=== PATIENT | female | born 1950 | race Caucasian/White ===

== ENCOUNTER → 2024-04-23 16:43 | Outpatient (REF) | payer MEDICARE, OTHER, SELFPAY | LOC: PAVMRI 16:43 | PROVIDERS: ATTENDING PHYSICIAN Specialist; FAMILY PHYSICIAN Physician Assistant Medical | DX: G95.9 Disease of spinal cord, unspecified (principal) | CPT/HCPCS: 72141 ==

== ENCOUNTER 2024-09-29 15:19 | Inpatient (IN) | payer MEDICARE, OTHER, SELFPAY ==
--- NOTE | 2024-09-26 17:05 | ED.GENMED ---
ED Provider Triage
<Roland Coreas PA-C - Last Filed: 09/26/24 17:06>
-
Patient seen by provider in Triage?: Seen in Triage
74-year-old female presents after being seen by family doctor for increased headache fatigue dizziness and confusion. She notes the headache is persistent but gradual in onset. She denies a fever. She denies a cough or chest pain. She notes any
minimal exertion creates fatigue.
Vital signs are stable for triage but will initiate work with labs EKG CAT scan of head here now
Seen by provider in triage but needs further assessment.
History of Present Illness
<Roland Coreas PA-C - Last Filed: 09/26/24 17:06>
General
Chief Complaint: Dizziness
Time Seen by Provider: 09/26/24 20:25
<Beth Pena DO - Last Filed: 09/26/24 23:02>
History of Present Illness
History of Present Illness:
74-year-old female with history of migraines, diabetes, hyperlipidemia, history of frequent falls presenting for dizziness and headache. Patient reports symptoms for the past few days. Dizziness is worse with certain head movements and when
sitting up. Denies any recent fall. Headache is diffuse to the head. Denies any neck pain or fever. Denies weakness or numbness to her extremities. Denies chest pain or difficulty breathing. Denies any visual changes. Denies abdominal pain or
GI symptoms. Denies additional acute medical complaints
Past History
<Roland Coreas PA-C - Last Filed: 09/26/24 17:06>
Past History
ED Past Medical History: GERD, Hypercholesterolemia, NIDDM, Hypothyroidism, Psychiatric (Depression) and Other (Ded's angina, )
ED Past Surgical History: Appendectomy, Cholecystectomy, Gynecological (DESIRE, BSO, D&C, Right lumpectomy, Breast biopsy X 2) and Other (Adhesions)
Social History
Tobacco: Former smoker
Alcohol: None
Drug: None
Personal: (same sex marriage)
Living: with family
Employment: Not employed
Family History
Family History: Other (her dads had an NH at 63)
Phy Exam
<Beth Pena DO - Last Filed: 09/26/24 23:02>
Physical Exam
Physical Exam:
General: Well-appearing, no clinical signs of dehydration, nontoxic and in no acute distress
HEENT: protecting airway, reproducible dizziness with extraocular movement testing, nystagmus when looking to the right
Neck: appears supple
CV: Normal heart rate, regular rhythm
Resp: No accessory muscle use, no increased work of breathing, lungs clear to auscultation bilaterally
Abd: Soft and non-distended, no tenderness to palpation, normal bowel sounds
Extremities: No deformities, no swelling
Neuro: alert, no focal neurologic deficit
: deferred
Rectal: deferred
Psych: Normal affect
Skin: Intact
Course
<Roland Coreas PA-C - Last Filed: 09/26/24 17:06>
Orders/Labs/Results
Orders:
Orders
09/26/24 17:03
Electrocardiogram (*1) Urgent
Reason for Study: Fatigue / Weakness
CT Head W/o Iv Contrast Urgent
Comment:
Reason For Exam: severe headache
EKG- Treatment ONCE
09/26/24 17:21
Complete Blood Count/With Diff Urgent
Comprehensive Metabolic Panel Urgent
09/26/24 20:37
Orthostatic VS- Treatment ONCE
Ketorolac [Toradol] 15 mg IV NOW STA
Meclizine [Antivert] 25 mg PO NOW STA
09/26/24 20:46
Ketorolac [Toradol] 15 mg IM NOW STA
09/26/24 22:00
Urinalysis Reflex To Culture Urgent
Date Specimen was Collected: 09/26/24
Time Specimen was Collected: 17:09
Abnormal Lab Results
09/26/24
17:21
WBC 13.4 H 10^3/uL
(4.8-10.8)
RBC 3.62 L 10^6/uL
(4.20-5.40)
Hgb 11.7 L g/dL
(12.0-16.0)
Hct 35.4 L %
(37.0-47.0)
MCH 32.3 H pg
(27.0-31.0)
Absolute Neuts (auto) 10.1 H 10^3/uL
(1.4-6.5)
Absolute Monos (auto) 0.8 H 10^3/uL
(0.1-0.6)
Neutrophils % 75.8 H %
(42.2-75.2)
Lymphocytes % 16.7 L %
(20.5-51.1)
BUN 24 H mg/dl
(7-17)
Glucose 108 H mg/dl
(70-99)
09/26/24 17:21
09/26/24 17:21
Vital Signs
Initial and Last Documented VS:
Initial Vital Signs
Temp Pulse Resp Pulse Ox
98.0 F 75 18 97
09/26/24 17:02 09/26/24 17:02 09/26/24 17:02 09/26/24 17:02
Last Documented Vital Signs
Temp Pulse Resp Pulse Ox
98.0 F 75 18 97
09/26/24 17:02 09/26/24 17:02 09/26/24 17:02 09/26/24 17:02
<Beth Pena, DO - Last Filed: 09/26/24 23:02>
Orders/Labs/Results
Orders:
Orders
09/26/24 17:03
Electrocardiogram (*1) Urgent
Reason for Study: Fatigue / Weakness
CT Head W/o Iv Contrast Urgent
Comment:
Reason For Exam: severe headache
EKG- Treatment ONCE
09/26/24 17:21
Complete Blood Count/With Diff Urgent
Comprehensive Metabolic Panel Urgent
09/26/24 20:37
Orthostatic VS- Treatment ONCE
Ketorolac [Toradol] 15 mg IV NOW STA
Meclizine [Antivert] 25 mg PO NOW STA
09/26/24 20:46
Ketorolac [Toradol] 15 mg IM NOW STA
09/26/24 22:00
Urinalysis Reflex To Culture Urgent
Date Specimen was Collected: 09/26/24
Time Specimen was Collected: 17:09
Abnormal Lab Results
09/26/24
17:21
WBC 13.4 H 10^3/uL
(4.8-10.8)
RBC 3.62 L 10^6/uL
(4.20-5.40)
Hgb 11.7 L g/dL
(12.0-16.0)
Hct 35.4 L %
(37.0-47.0)
MCH 32.3 H pg
(27.0-31.0)
Absolute Neuts (auto) 10.1 H 10^3/uL
(1.4-6.5)
Absolute Monos (auto) 0.8 H 10^3/uL
(0.1-0.6)
Neutrophils % 75.8 H %
(42.2-75.2)
Lymphocytes % 16.7 L %
(20.5-51.1)
BUN 24 H mg/dl
(7-17)
Glucose 108 H mg/dl
(70-99)
09/26/24 17:21
09/26/24 17:21
Vital Signs
Initial and Last Documented VS:
Initial Vital Signs
Temp Pulse Resp Pulse Ox
98.0 F 75 18 97
09/26/24 17:02 09/26/24 17:02 09/26/24 17:02 09/26/24 17:02
Last Documented Vital Signs
Temp Pulse Resp Pulse Ox
98.0 F 75 18 97
09/26/24 17:02 09/26/24 17:02 09/26/24 17:02 09/26/24 17:02
<Beth Pena DO - Last Filed: 09/26/24 23:02>
MDM/Problems Addressed
MDM/Problems Addressed:
74-year-old female with history of diabetes, migraines, hyperlipidemia, frequent falls presenting for dizziness and headache. Vital signs are normal.
On exam, patient is in no acute distress. Overall benign examination. Unremarkable neurologic exam. No focal neurologic deficit. Regarding headache, appears consistent with migraine, known history of migraines. No meningismus, afebrile, without
concern for infectious pathology. Patient denies any exertional onset, no focal neurologic deficits, without concern for central neurologic process. Patient had evaluation by provider in triage prior to my assessment, had blood work and CT brain
imaging completed, unremarkable. She does have a mild leukocytosis, however appears to be chronic. Will treat with Toradol and reassess for improvement. Regarding dizziness, suspected vertiginous component given reproducible symptoms with
extraocular movement testing and nystagmus. Will treat with meclizine and reassess. Patient also notes that her symptoms are worse with sitting up, will obtain orthostatics.
22:50 - After Toradol, noting that headache has improved. She is still feeling dizzy. Orthostatics negative. Attempted to ambulate, was able to stand up, however very unsteady. Patient with known history of frequent falls, ambulates with cane.
Unsafe disposition home. Will admit for observation and continued treatment of her dizziness, possible vestibular PT
<Beth Pena DO - Last Filed: 09/26/24 23:02>
*EKG
Interpreted by ED Provider?: Yes
EKG Intrepretation Date: 09/26/24
EKG Intrepretation Time: 22:50
Interpretation: normal
Heart Rate: 68
Rate: normal
Rhythm: sinus
[place]: normal axis
Interval: normal interval
QRS Pattern: normal QRS
Ischemia: no ischemia
*Critical Care Note
Total Time (30-74mins, 75-104mins- exclusive of procedures): Not Applicable
ED Attending Note
<Roland Coreas PA-C - Last Filed: 09/26/24 17:06>
-
Portions of this chart may have been created with voice recognition software.� Occasional wrong word or��sound alike� substitutions may have occurred due to the inherent limitations of voice recognition software.
Discharge Plan
Departure
Prescriptions:
No Action
atorvastatin 20 MG tablet
40 mg PO HS
fexofenadine-pseudoephedrine [Katlin-D 12 Hour] 1 EACH tablet extended release 12 hr
1 ea PO DAILY
Aimovig Autoinjector 70 MG/ML auto-injector
70 mg SQ MONTHLY
multivitamin Tablet
1 tab PO DAILY
levothyroxine 50 mcg Tablet
50 mcg PO DAILY@0700
hydrochlorothiazide 25 mg Tablet
25 mg PO DAILY
bupropion HCl [Wellbutrin XL] 150 mg Tablet Extended Release 24 Hr
450 mg PO DAILY
omeprazole 20 MG capsule,delayed release(DR/EC)
20 mg PO DAILY
citalopram 40 mg tablet
40 mg PO HS
glucosamine-chondroitin [Osteo Bi-Flex] 250-200 mg Tablet
2 tab PO DAILY
Referrals:
Gurdeep Griffiths MD [Family Provider] -
Interventions
Interventions:
*Risk Screen - Suicide Last Done: 09/26/24 17:02
*General Assessment Last Done: 09/26/24 17:02
*Neglect/Abuse Screening Last Done: 09/26/24 17:02
ED- Fall Risk Assessment Last Done: 09/26/24 21:56
*ED COVID-19 Vaccine History Last Done: 09/26/24 17:02
ED- Neurological Assessment Last Done: 09/26/24 21:56
ED Swallowing Screen Last Done: 09/26/24 21:56
Discharge Date and Time
Print Language: SINHALA
[2024-09-26 17:36] LABS: % Basophils 0.3 % (0-2); % Eosinophils 0.9 % (0-6); % Immature Granulocytes 0.3 % (0-0.5); % Lymphocytes 16.7 % (20.5-51.1); % Neutrophils 75.8 % (42.2-75.2); Absolute Eosinophils 0.1 10^3/uL (0-0.7); Absolute Lymphocytes 2.2 10^3/uL (1.2-3.4); Absolute Monocytes 0.8 10^3/uL (0.1-0.6); Absolute Neutrophils 10.1 10^3/uL (1.4-6.5); Hematocrit 35.4 % (37.0-47.0); Hemoglobin 11.7 g/dL (12.0-16.0); Mean Corp Hgb Conc. 33.1 g/dL (33.0-37.0); Mean Corpuscular Hgb 32.3 pg (27.0-31.0); Mean Corpuscular Volume 97.8 fL (81.0-99.0); Mean Platelet Volume 10.2 fL (7.4-10.4); Nucleated Red Blood Cells % 0 %; Platelet Count 293 10^3/uL (130-400); Red Blood Cell Count 3.62 10^6/uL (4.20-5.40); Red Cell Dist. Width 13.3 % (11.5-14.5); White Blood Cell Count 13.4 10^3/uL (4.8-10.8)
[2024-09-26 17:44] LABS: ALT (SGPT) < 10 U/L (0-35); AST (SGOT) 24 U/L (14-36); Albumin 4.4 g/dl (3.5-5.0); Alkaline Phosphatase 92 U/L (38-126); Blood Urea Nitrogen 24 mg/dl (7-17); Calcium 9.7 mg/dl (8.4-10.2); Carbon Dioxide 28 mmol/L (22-30); Chloride 101 mmol/L (98-107); Glucose 108 mg/dl (70-99); Potassium 4.4 mmol/L (3.5-5.1); Sodium 139 mmol/L (135-145); Total Bilirubin 0.7 mg/dl (0.2-1.3); eGFR > 60.00
[2024-09-26 21:30] VITALS: BP 122/65; BP 139/76; BP 149/83; PULSE 77; PULSE 84; PULSE 86
[2024-09-26] MEDS: ANTIVERT 25 MG PO (21:52)
[2024-09-26] MEDS: TORADOL 15 MG IM (21:52)
--- NOTE | 2024-09-26 23:12 | HPS.HSE ---
Family Physician
-
Family Physician: Gurdeep Griffiths
Chief Complaint
-
Headache, dizziness
History of Present Illness
74-year-old female complaining of Right parietal headache since Sunday along with increased dizziness with standing or lying on back. Lying on her side helps with the dizziness. She states she has had ongoing dizziness and headaches for the
past year she was diagnosed with Parkinson's and placed on Sinemet . She reports she has had frequent falls due to current dizziness. She reports resolution of her headache with Toradol. She denies any prior vestibular therapy. She reports she
follows with Dr. Herman from neurology. She denies fever, chills, cough, shortness of breath, chest pain, palpitations, abdominal pain, nausea, vomiting, diarrhea, urinary symptoms. She has past medical history of migraines, Parkinson's with chronic
tremors and frequent falls , DM2-diet controlled, HLD, GERD, hypothyroidism, depression, Edd's angina, frequent falls due to dizziness, normocytic anemia.
Medical History
Past Medical History
Past Medical History: Reports Other (see below )
Additional Past Medical History:
Parkinson's disease Dx 2022
Frequent falls
Diabetes Mellitus, Type II
Essential Hypertension
Hyperlipidemia
Hypothyroidism
Depression
Migraine Headaches
Hx Breast CA s/p Left Lumpectomy
Past Surgical History: Reports Other (see below )
Additional Past Surgical History:
Left Breast Lumpectomy
Hysterectomy and Bilateral Salpingo-oophorectomy
Cholecystectomy
Social History
Tobacco: Former Smoker
Alcohol: None
Drug: None
Personal: ( (same sex marriage))
Living: With Family ( [place]a)
Family History
Family History: Not pertinent
Allergies / Home Medications
Allergies reflects when Allergies were last updated in [employer].
Home Medications with original date entered in [employer]
Allergy/Medication List:
Allergies
Allergy/AdvReac Type Severity Reaction Status Date / Time
adhesive tape Allergy Rash/BLISTE Verified 09/26/24 17:08
RS
butorphanol Allergy HALLUCINATI Verified 09/26/24 17:08
ONS
Home Medications
atorvastatin 20 mg tablet 40 mg PO HS High cholesterol 09/25/11
bupropion HCl 150 mg 24 hr tablet, extended release (Wellbutrin XL) 450 mg PO DAILY Mental Health/Anxiety 01/05/23
hydrochlorothiazide 25 mg tablet 25 mg PO DAILY Blood pressure 01/05/23
levothyroxine 50 mcg tablet 50 mcg PO DAILY@0700 Thyroid 01/05/23
omeprazole 20 mg capsule,delayed release 20 mg PO DAILY Gastrointestinal issue 01/06/23
citalopram 40 mg tablet 40 mg PO HS Mental Health 09/25/23
glucosamine-chondroitin 250 mg-200 mg tablet (Osteo Bi-Flex) 1 tab PO DAILY Supplement 09/25/23
carbidopa 25 mg-levodopa 100 mg tablet 1 tab PO .5X DAILY 09/26/24
erenumab-aooe 140 mg/mL subcutaneous auto-injector (Aimovig Autoinjector) 140 mg SC QMONTH 09/26/24
therapeutic multivitamin 1 tab PO DAILY 09/26/24
Review of Systems
-
History Source: Patient
A 12 point ROS was completed and negative except as noted: Yes
Constitutional: Denies Fever or Fatigue
EENT: Denies Sore Throat or Runny Nose
Respiratory: Denies Cough or Trouble Breathing
Cardiac: Denies Chest Pain, Diaphoresis, Palpitations or Syncope
Abdomen/GI: Denies Abdominal Pain, Nausea, Vomiting, Diarrhea, Constipated, Bloody Stools or Black Stools
: Denies Dysuria, Frequency, Flank Pain, Incontinence, Difficulty Voiding or Urgency
Musculoskeletal: Denies Joint Pain or Edema
Skin: Denies Itching or Rash
Neurological: Reports Dizzy and Headache; Denies Weakness
Endocrine: Reports No Symptoms
Hematologic/Lymphatic: Reports No Symptoms
Psych: Reports Calm
Physical Exam
Vital Signs
Vital Signs
Temp Pulse Resp Pulse Ox
98.0 F 75 18 97
09/26/24 17:02 09/26/24 17:02 09/26/24 17:02 09/26/24 17:02
Physical Exam
General: Comfortable and Conversant; No Fever or Chills
HEENT: NormoCephalic, Anicteric, Moist mucous membranes, PERRLA (Slight left to right horizontal nystagmus brief), [place] Conjunctivae, No Ptosis and Other (Speech impediment)
Respiratory: Clear; No Wheezes, Rales or Rhonchi
Cardiac: S1/S2 and Regular Rhythm; No Murmur, Rub, Gallop or Peripheral Edema
Breast: Deferred by me
GI: Soft, Non Tender, Non Distended, Normal Bowel Sounds and No Hepatosplenomegaly
Rectal: Deferred by Provider
Genito-urinary: Deferred by me
Musculoskeletal: No Clubbing, No Cyanosis and No Edema
Skin: Warm and Dry; No Rash
Neuro: AO x 3, No Motor Deficits (While in bed), Cranial Nerves Intact, No Sensory Deficits and Slurred Speech (Due to speech impediment); No Facial Droop, Tremors or Sedated
Psych: Calm
Laboratory Results
-
09/26/24 17:21
09/26/24 17:21
Laboratory Results
Total Bilirubin 0.7 mg/dl (0.2-1.3) 09/26/24 17:21
AST 24 U/L (14-36) 09/26/24 17:21
ALT < 10 U/L (0-35) 09/26/24 17:21
Alkaline Phosphatase 92 U/L (38-126) 09/26/24 17:21
Data Reviewed
-
CT Scan: Report Reviewed by me
Lab Data: Labs Reviewed by me
Impression/Plan
-
Impression/plan:
Observation Telemetry
#Acute dizziness headache concern Parkinson's related versus vestibular neuritis vs bbpv
-Toradol given for migraine, Antivert 25 mg given for dizziness
-Patient with improvement in migraine after IV Toradol will continue IV Toradol 15 mg every 6 hours as needed moderate headache
-Will give Valium 2 mg IV now then valium 2 mg p.o. 3 times daily as needed dizziness
-Check orthostatics
-Consult PT for vestibular therapy
-Consult Neurology
CT head: No acute intracranial abnormality
#Acute leukocytosis unclear etiology likely reactive low concern for any infectious etiology
Patient afebrile, normotensive no clinical source
-WBC 13.5
-Will repeat CBC, monitor for temperature, check urinalysis
#Parkinson's disease with chronic falls and shuffling gait
#Frequent falls�uses cane
-Dx 1 year ago per patient
-Follows with neurology Dr. Herman
-Continue Sinemet
#Hx of migraines
-Patient reports migraines have been gone since taking Aimovig injection monthly
-#GERD
-continue omeprazole 20 mg daily
#Diabetes Mellitus, Type II-diet controlled
Accu-Cheks with SSI, check HgbA1c
-Blood sugar 108
#Essential Hypertension
BP 124/66
-Continue HCTZ 25 mg daily
#Hyperlipidemia
-Atorvastatin 40 mg at bedtime
#Hypothyroidism
-Continue levothyroxine 50 mcg p.o. daily
#Depression
-Continue Celexa 40 mg at bedtime, Wellbutrin 450 mg daily
#Hx Breast CA s/p Left Lumpectomy
DVT prophylaxis
SCDs
DNR per patient
--- NOTE | 2024-09-26 23:31 | W.PN.UPDATE ---
Update Note
Progress Note Update
This is an addendum to the H&P written by Citlaly Jain on 09/26/2024. Patient seen and examined independently with REHABILITATION PROGRAM COORDINATOR.
74-year-old female past medical history of Parkinson disease, migraines, diabetes, hypertension, hypothyroidism, breast cancer, hyperlipidemia, GERD, chronic normocytic anemia, obesity, presenting for right parietal headache and vertigo for the past
year although worsening within the past few days. Dizziness worse with head movements and sitting up.
On examination patient has rightward nystagmus with leftward gaze. No neurological deficits.
CT head shows no acute abnormality.
Patient given meclizine and Toradol in emergency room.
Presentation consistent with peripheral vertigo/vestibular neuritis vs Parkinsons related vertigo. Check orthostatic vital signs. PRN Valium. Neurology consulted. Vestibular therapy.
[2024-09-26] MEDS: VALIUM INJECTION 2 MG IV (23:34)
[2024-09-26 23:35] VITALS: BMI 31.9
[2024-09-27] VITALS (13 sets, daily range): BP systolic 120–158; BP diastolic 52–97; PULSE 73–75; BMI 31.9; BMI 31.0
[2024-09-27] MEDS: TORADOL 15 MG IV ×2 (04:05→18:17)
[2024-09-27] MEDS: SYNTHROID 50 MCG PO (06:17)
[2024-09-27 06:45] LABS: % Basophils 0.5 % (0-2); % Eosinophils 1.4 % (0-6); % Immature Granulocytes 0.3 % (0-0.5); % Lymphocytes 19.7 % (20.5-51.1); % Monocytes 6.5 % (1.7-9.3); % Neutrophils 71.6 % (42.2-75.2); Absolute Basophils 0.1 10^3/uL (0-0.2); Absolute Eosinophils 0.2 10^3/uL (0-0.7); Absolute Lymphocytes 2.1 10^3/uL (1.2-3.4); Absolute Monocytes 0.7 10^3/uL (0.1-0.6); Absolute Neutrophils 7.7 10^3/uL (1.4-6.5); Hematocrit 34.4 % (37.0-47.0); Hemoglobin 11.3 g/dL (12.0-16.0); Mean Corp Hgb Conc. 32.8 g/dL (33.0-37.0); Mean Corpuscular Hgb 31.9 pg (27.0-31.0); Mean Corpuscular Volume 97.2 fL (81.0-99.0); Mean Platelet Volume 10.2 fL (7.4-10.4); Nucleated Red Blood Cells % 0 %; Platelet Count 265 10^3/uL (130-400); Red Blood Cell Count 3.54 10^6/uL (4.20-5.40); Red Cell Dist. Width 13.2 % (11.5-14.5); White Blood Cell Count 10.7 10^3/uL (4.8-10.8)
[2024-09-27 06:50] LABS: Urine Albumin Negative (Neg - Trace); Urine Bilirubin Negative (Negative); Urine Character Clear (Clear); Urine Color Yellow; Urine Glucose Negative (Negative); Urine Ketone Negative (Negative); Urine Leukocyte Negative (Negative); Urine Nitrite Negative (Negative); Urine Occult Blood Negative (Negative); Urine Specific Gravity 1.005 (<1.030); Urine Urobilinogen Negative (Neg - 1+)
[2024-09-27 07:10] LABS: ALT (SGPT) 16 U/L (0-35); AST (SGOT) 27 U/L (14-36); Albumin 3.9 g/dl (3.5-5.0); Alkaline Phosphatase 83 U/L (38-126); Blood Urea Nitrogen 24 mg/dl (7-17); Calcium 8.9 mg/dl (8.4-10.2); Carbon Dioxide 27 mmol/L (22-30); Chloride 104 mmol/L (98-107); Estimated Creatinine Clearance 68 ml/min; Glucose 115 mg/dl (70-99); Potassium 4.2 mmol/L (3.5-5.1); Sodium 141 mmol/L (135-145); Total Protein 6.4 g/dl (6.3-8.2); eGFR > 60.00
[2024-09-27 07:59] LABS: Vitamin B12 678 pg/ml (239-931)
[2024-09-27] MEDS: WELLBUTRIN XL (24 hour extended release) 450 MG PO (10:08)
[2024-09-27] MEDS: PROTONIX 40 MG PO (10:09)
[2024-09-27] MEDS: ORETIC 25 MG PO (10:09)
[2024-09-27] MEDS: THERAGRAN PO (10:10)
--- NOTE | 2024-09-27 10:56 | CON.NEURO ---
Consultation
Order
Date of Consultation: 09/27/24
Requesting Provider: Citlaly Jain CRNP
Reason for Consult: Dizziness
Neurology Consultation Note.
HPI: This is a 74-year-old woman who presented to [facility] on 09/26/2024 with dizziness and headache.She was referred to the emergency room by her neurologist for lab work and a urine test.
Ms. Serrato reports dizziness, described as 'fuzzy' feeling, particularly when getting up, and feels like she is going to pass out. He did have recurrent falls wo LOC, with the most recent one occurring last week. The patient was seen in ER on 09/24/2023
with a fall
She has been experiencing forgetfulness for a couple of months. The patient reports using a cane for about a year and has not attended physical therapy since then. The patient has been on Sinemet for about a year but reports no improvement in her
walking, movement, or turning abilities, and feels her condition is worsening.
Ms. Serrato has a history of migraine headaches and has been using Aimovig for treatment. Her headaches are typically located on the right retrorbital region, sometimes accompanied by nausea or intermittent emesis. Rachel has been on Aimovig for
stroke prophylaxis. Ms. Serrato has been in Wellbutrin for years. She had a lumbar puncture in 2019 due to her headaches. No OP/CP, OCB/MBP on CSF testing on (11/20/2018) is available.
The patient also has history of pituitary microadenoma
ER VS: 135/63,68, afebrile
EKG:NSR, QTc Int : 467 ms
PDMP:none
Labs: WBCs�13.4, hemoglobin�11.7, normal sodium, creatinine, calcium, free T4, vitamin B12, unremarkable UA
Brain MRI wo stiven(09/25/2023)-severe white matter leukoaraiosis in both cerebral hemispheres; symmetric very low T2 gradient echo signal in the globus pallidus of the basal ganglia and in the substantia nigra of the midbrain which appears similar to
06/22/2020; moderate diffuse cerebral and cerebellar volume loss.
MAR: Diazepam 2 mg given on 09/26/24 at 23:34
PMH: pituitary microadenoma, Migraine, parkinsonism, HTN, DLP, DM, hypothyroidism, STIVEN, MDD, h/o Edd's angina
PSH:Left Lumpectomy, cholecystectomy, DESIRE, bilateral Salpingo-oophorectomy
SH: to a female partner, former smoker; retired [employer]; no history of excessive alcohol
FH:mother-stroke in her 70s
All: Butorphanol
ROS: Constitutional: Negative. Negative for chills, fever and unexpected weight change.
HENT: Negative for ear pain, hearing loss, tinnitus and trouble swallowing.
Eyes: Negative. Negative for photophobia, pain and visual disturbance.
Respiratory: Negative for cough, choking and shortness of breath.
Cardiovascular: Negative for chest pain, palpitations and leg swelling.
Gastrointestinal: Negative for abdominal pain and vomiting.
Endocrine: Negative. Negative for cold intolerance.
Genitourinary: Negative for dysuria, flank pain and urgency.
Musculoskeletal: Negative for back pain, gait problem, neck pain and neck stiffness.
Skin: Negative for rash.
Allergic/Immunologic: Negative. Negative for immunocompromised state.
Neurological: Positive for bradykinesia, forgetfulness imbalance, tremor, falls
Psychiatric/Behavioral: Positive insomnia, cognitive symptoms
General: Well developed. In no acute distress.
Cardio: Regular rate and rhythm without murmur. Extremities are without cyanosis or edema.
Neuro:
Mental Status: Somnolent, oriented to person, place, and date. Increased processing time. Normal attention and recall. Good fund of knowledge. Follows complex requests across the midline. Comprehension, naming, and repetition intact. Immediate
recall 3/3.
Cranial Nerves: Pupils are equally round and reactive to light. EOMs full. Visual suazo full to confrontation. No ptosis. No nystagmus. V1-V3 intact to light touch and pinprick bilaterally, symmetric. Face symmetric. Normal hearing AU. The
palate elevated well. SCMs and traps 5/5. Tongue midline. No dysarthria.
Motor: Increased motor tone in right greater than left with augmentation.
Reflexes: Negative grasp bilaterally
Sensory: Normal vibration at the toes
Coordination: Mild action hand tremor. No dysmetria
Gait: deferred
Assessment and Plan:
I. Parkinsonism basal ganglia iron deposition differential diagnosis includes neurodegeneration with brain iron accumulation, multiple sclerosis,
II.Basal ganglia iron deposition. Differential diagnosis includes neurodegeneration with brain iron accumulation, multiple sclerosis, IPD)
III. Encephalopathy(vascular, neurodegenerative, toxic)
-Fall precautions
-Please obtain orthostatic vital signs
-Avoid medications known to cause headache as a side effect�Wellbutrin (up to 34% of treated patients),
-Please check iron panel, copper, ceruloplasmin
-Op Art scan
-OP LSVT therapy
-Outpatient neuropsychological evaluation
-Outpatient neurology follow-up
-Please recall neurology service with any questions or concerns
I personally reviewed all radiology and labs along with past medical records pertinent to current medical problems. Total time spent in patient care is 60 minutes.
Thank you for allowing us to participate in the care of this patient. We will continue to follow. Please do not hesitate to contact us with any questions or concerns.
Subjective/Objective
Subjective Data
Date of Service: September 27, 2024
Objective Data
Vital Signs
Temp Pulse Resp BP Pulse Ox
36.8 C 88 15 157/85 98
09/27/24 04:00 09/27/24 10:09 09/27/24 05:30 09/27/24 10:09 09/27/24 04:00
Lab Results
09/27/24 06:27
09/27/24 06:27
Sodium 141 mmol/L (135-145) 09/27/24 06:27
Potassium 4.2 mmol/L (3.5-5.1) 09/27/24 06:27
BUN 24 mg/dl (7-17) H 09/27/24 06:27
Glucose 115 mg/dl (70-99) H 09/27/24 06:27
Calcium 8.9 mg/dl (8.4-10.2) 09/27/24 06:27
Vitamin B12 678 pg/ml (239-931) 09/27/24 06:27
Patient Allergies
adhesive tape Allergy (Verified 09/26/24 17:08)
Rash/BLISTERS
butorphanol Allergy (Verified 09/26/24 17:08)
HALLUCINATIONS
Medications
-
Active Medications
Generic Name Dose Route Start Last Admin
Trade Name Freq PRN Reason Stop Dose Admin
Acetaminophen 650 mg 09/27/24 00:28
Acetaminophen 325 Mg Tablet PO 10/25/24 00:27
Q4HPRN PRN
mild pain/MENDOZA/temp> 100.4F
Atorvastatin Calcium 40 mg 09/27/24 22:00
Atorvastatin (Lipitor) 20 Mg Tablet PO 10/25/24 21:59
HS JAKOB
Bupropion HCl 450 mg 09/27/24 08:00 09/27/24 10:08
Bupropion (24hr) Extended Release 150 Mg Tablet PO 10/25/24 07:59 450 mg
DAILY JKAOB Administration
Carbidopa/Levodopa 1 tablet 09/27/24 00:28
Carbidopa (25 Mg)/Levodopa (100 Mg) Regular Release Tablet PO 10/25/24 00:27
.5X DAILY JAKOB
Citalopram Hydrobromide 40 mg 09/27/24 22:00
Citalopram 40 Mg Tablet PO 10/25/24 21:59
HS JAKOB
Diazepam 2 mg 09/26/24 23:23
Diazepam 2 Mg Tablet PO 10/24/24 23:22
TIDPRN PRN
dizziness
Hydrochlorothiazide 25 mg 09/27/24 08:00 09/27/24 10:09
Hydrochlorothiazide 25 Mg Tablet PO 10/25/24 07:59 25 mg
DAILY JAKOB Administration
Ketorolac Tromethamine 15 mg 09/26/24 23:24 09/27/24 04:05
Ketorolac 15 Mg/Ml Injection IV 10/01/24 23:23 15 mg
Q6HPRN PRN Administration
mod headache
Levothyroxine Sodium 50 mcg 09/27/24 06:00 09/27/24 06:17
Levothyroxine 50 Mcg Tablet PO 10/25/24 05:59 50 mcg
DAILY@0600 JAKOB Administration
Multivitamins Therapeutic 1 tablet 09/27/24 08:00 09/27/24 10:10
Multivitamin Tablet PO 10/25/24 07:59 Not Given
DAILY JAKOB
Pantoprazole Sodium 40 mg 09/27/24 08:00 09/27/24 10:09
Pantoprazole 40 Mg Delayed Release Tablet PO 10/25/24 07:59 40 mg
DAILY JAKOB Administration
Home Medications
�Medication �Instructions �Recorded
atorvastatin 20 mg tablet 40 mg PO HS High cholesterol 09/25/11
bupropion HCl 150 mg 24 hr tablet, 450 mg PO DAILY Mental 01/05/23
extended release (Wellbutrin XL) Health/Anxiety
hydrochlorothiazide 25 mg tablet 25 mg PO DAILY Blood pressure 01/05/23
levothyroxine 50 mcg tablet 50 mcg PO DAILY@0700 Thyroid 01/05/23
omeprazole 20 mg capsule,delayed 20 mg PO DAILY Gastrointestinal 01/06/23
release issue
citalopram 40 mg tablet 40 mg PO HS Mental Health 09/25/23
glucosamine-chondroitin 250 mg-200 1 tab PO DAILY Supplement 09/25/23
mg tablet (Osteo Bi-Flex)
carbidopa 25 mg-levodopa 100 mg 1 tab PO .5X DAILY 09/26/24
tablet
erenumab-aooe 140 mg/mL 140 mg SC QMONTH 09/26/24
subcutaneous auto-injector
(Aimovig Autoinjector)
therapeutic multivitamin 1 tab PO DAILY 09/26/24
Vital Signs and Labs
-
Vital Signs and Labs:
Vital Signs
Temp Pulse Resp BP Pulse Ox
36.8 C 88 15 157/85 98
09/27/24 04:00 09/27/24 10:09 09/27/24 05:30 09/27/24 10:09 09/27/24 04:00
Lab Results
09/27/24 06:27
09/27/24 06:27
Sodium 141 mmol/L (135-145) 09/27/24 06:27
Potassium 4.2 mmol/L (3.5-5.1) 09/27/24 06:27
BUN 24 mg/dl (7-17) H 09/27/24 06:27
Glucose 115 mg/dl (70-99) H 09/27/24 06:27
Calcium 8.9 mg/dl (8.4-10.2) 09/27/24 06:27
Vitamin B12 678 pg/ml (239-931) 09/27/24 06:27
Medications
-
Medications:
Generic Name Dose Route Start Last Admin
Trade Name Freq PRN Reason Stop Dose Admin
Acetaminophen 650 mg 09/27/24 00:28
Acetaminophen 325 Mg Tablet PO 10/25/24 00:27
Q4HPRN PRN
mild pain/MENDOZA/temp> 100.4F
Atorvastatin Calcium 40 mg 09/27/24 22:00
Atorvastatin (Lipitor) 20 Mg Tablet PO 10/25/24 21:59
HS JAKOB
Bupropion HCl 450 mg 09/27/24 08:00 09/27/24 10:08
Bupropion (24hr) Extended Release 150 Mg Tablet PO 10/25/24 07:59 450 mg
DAILY JAKOB Administration
Carbidopa/Levodopa 1 tablet 09/27/24 00:28
Carbidopa (25 Mg)/Levodopa (100 Mg) Regular Release Tablet PO 10/25/24 00:27
.5X DAILY JAKOB
Citalopram Hydrobromide 40 mg 09/27/24 22:00
Citalopram 40 Mg Tablet PO 10/25/24 21:59
HS JAKOB
Diazepam 2 mg 09/26/24 23:23
Diazepam 2 Mg Tablet PO 10/24/24 23:22
TIDPRN PRN
dizziness
Hydrochlorothiazide 25 mg 09/27/24 08:00 09/27/24 10:09
Hydrochlorothiazide 25 Mg Tablet PO 10/25/24 07:59 25 mg
DAILY JAKOB Administration
Ketorolac Tromethamine 15 mg 09/26/24 23:24 09/27/24 04:05
Ketorolac 15 Mg/Ml Injection IV 10/01/24 23:23 15 mg
Q6HPRN PRN Administration
mod headache
Levothyroxine Sodium 50 mcg 09/27/24 06:00 09/27/24 06:17
Levothyroxine 50 Mcg Tablet PO 10/25/24 05:59 50 mcg
DAILY@0600 JAKOB Administration
Multivitamins Therapeutic 1 tablet 09/27/24 08:00 09/27/24 10:10
Multivitamin Tablet PO 10/25/24 07:59 Not Given
DAILY JAKOB
Pantoprazole Sodium 40 mg 09/27/24 08:00 09/27/24 10:09
Pantoprazole 40 Mg Delayed Release Tablet PO 10/25/24 07:59 40 mg
DAILY JAKOB Administration
Home Medications
-
Home Medications
atorvastatin 20 mg tablet 40 mg PO HS High cholesterol 09/25/11
bupropion HCl 150 mg 24 hr tablet, extended release (Wellbutrin XL) 450 mg PO DAILY Mental Health/Anxiety 01/05/23
hydrochlorothiazide 25 mg tablet 25 mg PO DAILY Blood pressure 01/05/23
levothyroxine 50 mcg tablet 50 mcg PO DAILY@0700 Thyroid 01/05/23
omeprazole 20 mg capsule,delayed release 20 mg PO DAILY Gastrointestinal issue 01/06/23
citalopram 40 mg tablet 40 mg PO Mental Health 09/25/23
glucosamine-chondroitin 250 mg-200 mg tablet (Osteo Bi-Flex) 1 tab PO DAILY Supplement 09/25/23
carbidopa 25 mg-levodopa 100 mg tablet 1 tab PO .5X DAILY 09/26/24
erenumab-aooe 140 mg/mL subcutaneous auto-injector (Aimovig Autoinjector) 140 mg SC QMONTH 09/26/24
therapeutic multivitamin 1 tab PO DAILY 09/26/24
[2024-09-27] MEDS: VALIUM 2 MG PO ×2 (11:39→18:17)
[2024-09-27 12:58] LABS: Iron 77 ug/dl (37-170)
[2024-09-27 13:07] LABS: Percent Saturation 22 % (20-50); Total Iron Binding Capacity 338 ug/dl (265-497)
[2024-09-27 14:24] LABS: Erythrocyte Sed Rate 38 mm/hour (0-20)
--- NOTE | 2024-09-27 15:00 | W.PN.HOSP.TC ---
Today's Communication/Plan
-
Symptomatic treatment vertigo
Await neurology input
Continue with PT/vestibular therapy
Assessment / Plan
Assessment / Plan
#Acute dizziness headache concern Parkinson's related versus vestibular neuritis vs bbpv
-Toradol given for migraine, Antivert 25 mg given for dizziness
-Patient with improvement in migraine after IV Toradol will continue IV Toradol 15 mg every 6 hours as needed moderate headache. No MENDOZA today.
-Will cw Valium 2 mg p.o. 3 times daily as needed dizziness
-Check orthostatics
-Consult PT for vestibular therapy
-Consult Neurology
CT head: No acute intracranial abnormality
#Acute leukocytosis unclear etiology likely reactive low concern for any infectious etiology
Patient afebrile, normotensive no clinical source
-WBC 13.5 -normalized now
- urinalysis neg
- Afeb;follow for now
#Parkinson's disease with chronic falls and shuffling gait
#Frequent falls�uses cane
-Dx 1 year ago per patient
-Follows with neurology Dr. Herman
-Continue Sinemet
#Hx of migraines
-Patient reports migraines have been gone since taking Aimovig injection monthly
-#GERD
-continue omeprazole 20 mg daily
#Diabetes Mellitus, Type II-diet controlled
Accu-Cheks with SSI, check HgbA1c
-Blood sugar 108
#Essential Hypertension
BP 124/66
-Continue HCTZ 25 mg daily
#Hyperlipidemia
-Atorvastatin 40 mg at bedtime
#Hypothyroidism
-Continue levothyroxine 50 mcg p.o. daily
#Depression
-Continue Celexa 40 mg at bedtime, Wellbutrin 450 mg daily
#Hx Breast CA s/p Left Lumpectomy
DVT prophylaxis
SCDs
DNR per patient
Anticipated Discharge: 24 - 48 hours
Subjective/Interval History
-
Date of Service: September 27, 2024
Pt was asleep when i entered the room.
No vertigo currently at rest but hasnt moved much bridger.
Denies MENDOZA.
No limb weakness.
Objective Data
-
Labs:
Laboratory Results
09/27/24
06:27
WBC 10.7
Hgb 11.3 L
Hct 34.4 L
Plt Count 265
Sodium 141
Potassium 4.2
Chloride 104
Carbon Dioxide 27
BUN 24 H
Creatinine 0.8
Glucose 115 H
Calcium 8.9
Total Bilirubin 1.0
AST 27
ALT 16
Alkaline Phosphatase 83
Vital Signs:
Vital Signs
Temp Pulse Resp BP Pulse Ox
98.3 F 89 17 120/81 98
09/27/24 04:00 09/27/24 14:45 09/27/24 14:45 09/27/24 14:45 09/27/24 04:00
Review of Systems
-
Constitutional: Denies Fever
Respiratory: Denies Trouble Breathing
Cardiac: Denies Chest Pain
Abdomen/GI: Denies Abdominal Pain, Nausea or Vomiting
Neuro: Denies Headache
Physical Exam
-
General: No Apparent Distress
HEENT: Moist Mucous Membranes
Respiratory: Clear to Auscultation
Cardiac: Regular Rhythm and S1/S2
GI: Soft
Neuro: AO x 3 and No Motor Deficits; Negative Tremors, Slurred Speech or Facial Droop
Psych: Calm
Data Reviewed
-
Labs: Labs Reviewed by me
[2024-09-27 16:47] LABS: Prolactin 18.5 ng/ml (3.0-18.6)
[2024-09-27] MEDS: TYLENOL 650 MG PO ×2 (16:57→22:13)
--- NOTE | 2024-09-27 18:27 | EDRN ---
This RN KI assumed care of this pt 15:15.
--- NOTE | 2024-09-27 18:29 | PTCARENOTE ---
Arrived to floor and ambulated with assistance and cane to bed. Oriented to room. Call franz within reach. Bed alarm in place.
[2024-09-27] MEDS: CELEXA 40 MG PO (22:11)
[2024-09-27] MEDS: LIPITOR 40 MG PO (22:11)
[2024-09-28] VITALS (7 sets, daily range): BP systolic 101–159; BP diastolic 57–83; PULSE 72; O2SAT 96
[2024-09-28] MEDS: VALIUM 2 MG PO ×3 (03:46→22:59)
[2024-09-28] MEDS: TORADOL 15 MG IV ×3 (03:46→23:43)
[2024-09-28] MEDS: SYNTHROID 50 MCG PO (05:07)
[2024-09-28 06:03] LABS: % Basophils 0.3 % (0-2); % Eosinophils 1.8 % (0-6); % Immature Granulocytes 0.4 % (0-0.5); % Lymphocytes 18.1 % (20.5-51.1); % Monocytes 7.2 % (1.7-9.3); % Neutrophils 72.2 % (42.2-75.2); Absolute Eosinophils 0.2 10^3/uL (0-0.7); Absolute Lymphocytes 1.9 10^3/uL (1.2-3.4); Absolute Monocytes 0.8 10^3/uL (0.1-0.6); Absolute Neutrophils 7.5 10^3/uL (1.4-6.5); Hematocrit 34.5 % (37.0-47.0); Hemoglobin 11.3 g/dL (12.0-16.0); Mean Corp Hgb Conc. 32.8 g/dL (33.0-37.0); Mean Corpuscular Hgb 32.3 pg (27.0-31.0); Mean Corpuscular Volume 98.6 fL (81.0-99.0); Mean Platelet Volume 10.2 fL (7.4-10.4); Nucleated Red Blood Cells % 0 %; Platelet Count 266 10^3/uL (130-400); Red Cell Dist. Width 13.4 % (11.5-14.5); White Blood Cell Count 10.4 10^3/uL (4.8-10.8)
[2024-09-28 06:30] LABS: ALT (SGPT) 21 U/L (0-35); AST (SGOT) 27 U/L (14-36); Albumin 3.9 g/dl (3.5-5.0); Alkaline Phosphatase 90 U/L (38-126); Blood Urea Nitrogen 27 mg/dl (7-17); Carbon Dioxide 27 mmol/L (22-30); Chloride 102 mmol/L (98-107); Estimated Creatinine Clearance 62 ml/min; Glucose 112 mg/dl (70-99); Potassium 4.1 mmol/L (3.5-5.1); Sodium 140 mmol/L (135-145); Total Protein 6.4 g/dl (6.3-8.2); eGFR > 60.00
[2024-09-28] MEDS: ORETIC 25 MG PO (08:30)
[2024-09-28] MEDS: WELLBUTRIN XL (24 hour extended release) 450 MG PO (08:30)
[2024-09-28] MEDS: THERAGRAN 1 TABLET PO (08:30)
[2024-09-28] MEDS: PROTONIX 40 MG PO (08:30)
--- NOTE | 2024-09-28 09:30 | W.PN.HOSP.TC ---
Today's Communication/Plan
-
Patient remains symptomatic with dizziness /headache. Continue with symptomatic treatments. Neurology following.
Continue with PT treatments.
Assessment / Plan
Assessment / Plan
#Acute dizziness, headache concern Parkinson's related versus vestibular neuritis vs bbpv
-Toradol given for migraine, Antivert 25 mg given for dizziness
-Patient with improvement in migraine after IV Toradol will continue IV Toradol 15 mg every 6 hours as needed moderate headache.Recurrence of MENDOZA and dizziness today.
-Will cw Valium 2 mg p.o. 3 times daily as needed dizziness
-Follow orthostatics
-Consult PT for vestibular therapy -did poorly today
-appt Neurology input
CT head: No acute intracranial abnormality
#Acute leukocytosis unclear etiology likely reactive low concern for any infectious etiology
Patient afebrile, normotensive no clinical source
-WBC 13.5 -normalized now
- urinalysis neg
- Afeb;follow for now
#Parkinson's disease with chronic falls and shuffling gait
#Frequent falls�uses cane
-Dx 1 year ago per patient
-Follows with neurology Dr. Herman
-Continue Sinemet
#Hx of migraines
-Patient reports migraines have been gone since taking Aimovig injection monthly
-#GERD
-continue omeprazole 20 mg daily
#Diabetes Mellitus, Type II-diet controlled
Accu-Cheks with SSI, check HgbA1c
-Blood sugar 108
#Essential Hypertension
BP 124/66
-Continue HCTZ 25 mg daily
#Hyperlipidemia
-Atorvastatin 40 mg at bedtime
#Hypothyroidism
-Continue levothyroxine 50 mcg p.o. daily
#Depression
-Continue Celexa 40 mg at bedtime, Wellbutrin 450 mg daily
#Hx Breast CA s/p Left Lumpectomy
DVT prophylaxis
SCDs
DNR per patient
Anticipated Discharge: 24 - 48 hours
Subjective/Interval History
-
Date of Service: September 28, 2024
Early as of this morning she had a right-sided headache. It was right to daughter via telephone going to the right occipital area. Not acting like it typical migraine. Usual migraines are more intense. Currently headache better, down to 2/10.
She also felt dizzy at the same time. She describes her dizziness as her moving not the things around her. Denies any double vision. Denies any limb weakness. Denies any tremors. Denies prior history of vertigo.
Patient was put on Sinemet within the last 4 months and she thinks her gait may be better. Remembers her dose was recently increased. She follows with a local neurologist.
Objective Data
-
Labs:
Laboratory Results
09/28/24
05:39
WBC 10.4
Hgb 11.3 L
Hct 34.5 L
Plt Count 266
Sodium 140
Potassium 4.1
Chloride 102
Carbon Dioxide 27
BUN 27 H
Creatinine 0.9
Glucose 112 H
Calcium 9.0
Total Bilirubin 1.0
AST 27
ALT 21
Alkaline Phosphatase 90
Vital Signs:
Vital Signs
Temp Pulse Resp BP Pulse Ox
98.1 F 86 16 159/83 97
09/28/24 08:00 09/28/24 08:30 09/28/24 08:00 09/28/24 08:30 09/28/24 08:00
Review of Systems
-
Respiratory: Denies Trouble Breathing
Cardiac: Denies Chest Pain or Palpitations
Abdomen/GI: Denies Abdominal Pain, Nausea or Vomiting
Neuro: Reports Dizzy and Headache
Physical Exam
-
General: Comfortable
Respiratory: Non Labored Respirations; Negative Accessory Resp Muscle Use
Cardiac: Regular Rhythm and S1/S2
GI: Soft
Neuro: AO x 3, No Motor Deficits and Other ( No spontneous nystagmus ; i am not seeing rt gaze nystagmus at this min); Negative Tremors, Slurred Speech or Facial Droop
Psych: Calm; Negative Confused
Data Reviewed
-
Labs: Labs Reviewed by me
[2024-09-28] MEDS: LIPITOR 40 MG PO (20:59)
[2024-09-28] MEDS: CELEXA 40 MG PO (20:59)
[2024-09-28] MEDS: TORADOL IV (22:37)
[2024-09-28] MEDS: TYLENOL 650 MG PO (23:00)
[2024-09-28] MEDS: SINEMET 25-100 1 TABLET PO (23:42)
[2024-09-29 03:34] VITALS: BP 121/50
[2024-09-29] MEDS: SYNTHROID 50 MCG PO (05:30)
[2024-09-29 07:35] VITALS: BP 148/71
[2024-09-29] MEDS: WELLBUTRIN XL (24 hour extended release) 450 MG PO (08:11)
[2024-09-29] MEDS: THERAGRAN 1 TABLET PO (08:12)
[2024-09-29] MEDS: ORETIC 25 MG PO (08:12)
[2024-09-29] MEDS: SINEMET 25-100 1 TABLET PO ×5 (08:12→21:49)
[2024-09-29] MEDS: PROTONIX 40 MG PO (08:12)
[2024-09-29] MEDS: VALIUM 2 MG PO (08:15)
[2024-09-29] MEDS: TORADOL 15 MG IV ×2 (08:15→21:41)
[2024-09-29 08:19] LABS: % Basophils 0.4 % (0-2); % Eosinophils 2.3 % (0-6); % Immature Granulocytes 0.4 % (0-0.5); % Lymphocytes 20.1 % (20.5-51.1); % Monocytes 7.3 % (1.7-9.3); % Neutrophils 69.5 % (42.2-75.2); Absolute Eosinophils 0.2 10^3/uL (0-0.7); Absolute Monocytes 0.7 10^3/uL (0.1-0.6); Hematocrit 34.6 % (37.0-47.0); Hemoglobin 11.3 g/dL (12.0-16.0); Mean Corp Hgb Conc. 32.7 g/dL (33.0-37.0); Mean Corpuscular Hgb 32.1 pg (27.0-31.0); Mean Corpuscular Volume 98.3 fL (81.0-99.0); Nucleated Red Blood Cells % 0 %; Red Blood Cell Count 3.52 10^6/uL (4.20-5.40); Red Cell Dist. Width 13.2 % (11.5-14.5); White Blood Cell Count 10.1 10^3/uL (4.8-10.8)
[2024-09-29 08:25] LABS: ALT (SGPT) < 10 U/L (0-35); AST (SGOT) 26 U/L (14-36); Albumin 3.9 g/dl (3.5-5.0); Alkaline Phosphatase 74 U/L (38-126); Blood Urea Nitrogen 28 mg/dl (7-17); Calcium 8.8 mg/dl (8.4-10.2); Carbon Dioxide 29 mmol/L (22-30); Chloride 101 mmol/L (98-107); Estimated Creatinine Clearance 56 ml/min; Glucose 123 mg/dl (70-99); Potassium 4.2 mmol/L (3.5-5.1); Sodium 141 mmol/L (135-145); Total Bilirubin 0.8 mg/dl (0.2-1.3); Total Protein 6.2 g/dl (6.3-8.2); eGFR 59.49
--- NOTE | 2024-09-29 09:44 | W.PN.HOSP.TC ---
Today's Communication/Plan
-
see bold
Assessment / Plan
Assessment / Plan
#Acute dizziness, headache concern Parkinson's related versus vestibular neuritis vs bbpv
-Toradol given for migraine, Antivert 25 mg given for dizziness
-Patient with improvement in migraine after IV Toradol will continue IV Toradol 15 mg every 6 hours as needed moderate headache.Recurrence of MENDOZA and dizziness today.
-Will cw Valium 2 mg p.o. 3 times daily as needed dizziness
-Follow orthostatics
-PT for vestibular therapy
-Appreciate neurology input, patient for brain MRI today
-Started on amitriptyline 25 mg nightly, Depakote 500 mg every 12 hours, dexamethasone IV
CT head: No acute intracranial abnormality
#Acute leukocytosis unclear etiology likely reactive low concern for any infectious etiology
Patient afebrile, normotensive no clinical source
-WBC 13.5 -normalized now
- urinalysis neg
- Afeb; resolved without antibiotics
#Parkinson's disease with chronic falls and shuffling gait
#Frequent falls�uses cane
-Dx 1 year ago per patient
-Follows with neurology Dr. Hreman
-Continue Sinemet
#Hx of migraines
-Patient reports migraines have been gone since taking Aimovig injection monthly
-#GERD
-continue omeprazole 20 mg daily
#Diabetes Mellitus, Type II-diet controlled
Accu-Cheks with SSI
#Essential Hypertension
-Continue HCTZ 25 mg daily
#Hyperlipidemia
-Atorvastatin 40 mg at bedtime
#Hypothyroidism
-Continue levothyroxine 50 mcg p.o. daily
#Depression
-Continue Celexa 40 mg at bedtime, Wellbutrin 450 mg daily
#Hx Breast CA s/p Left Lumpectomy
DVT prophylaxis
SCDs
DNR per patient
Total time spent to see the patient on the floor, examine the patient, review data and lab results, discuss treatment plan with patient, nursing staff around 39 minutes.
Physical Exam
General: No acute distress
HEENT: Normocephalic, Atraumatic, EOMI, MMM
Respiratory: Clear to Auscultation bilaterally
Cardiac: Normal S1/S2, Regular Rate and Rhythm
GI: Soft, Nontender, Nondistended, Normal Bowel Sounds
Extremities: No Clubbing, Cyanosis, or Edema
Neuro: Nonfocal/Grossly Intact
Psych: Calm, Cooperative
Derm: No Visible lesions
Anticipated Discharge: 24 - 48 hours
Subjective/Interval History
-
Date of Service: September 29, 2024
Patient complains of continued dizziness, and headache, 6 out of 10 in intensity. Associated symptoms include nausea. No fever. No chest pain, no shortness of breath.
Objective Data
-
Labs:
Laboratory Results
09/29/24
07:40
WBC 10.1
Hgb 11.3 L
Hct 34.6 L
Plt Count
Sodium 141
Potassium 4.2
Chloride 101
Carbon Dioxide 29
BUN 28 H
Creatinine 1.0
Glucose 123 H
Calcium 8.8
Total Bilirubin 0.8
AST 26
ALT < 10
Alkaline Phosphatase 74
Vital Signs:
Vital Signs
Temp Pulse Resp BP Pulse Ox
98.4 F 77 18 148/71 95
09/29/24 07:35 09/29/24 07:35 09/29/24 07:35 09/29/24 07:35 09/29/24 07:35
I&O
09/28/24 09/29/24 09/30/24
06:59 06:59 06:59
Intake Total 660 / 660
Balance 660 / 660
[2024-09-29 11:13] VITALS: BP 130/66
[2024-09-29 11:18] LABS: Magnesium 1.9 mg/dl (1.6-2.3)
[2024-09-29 11:40] LABS: COVID-19 Antigen Negative (Negative)
--- NOTE | 2024-09-29 12:23 | W.PN.NEURO.1 ---
Today's Communication / Plan
-
.
Subjective/Objective
Subjective Data
Date of Service: September 29, 2024
Neurology follow-up note.
Ms. Woodard endorses holocephalic moderate headache with associated vertigo, photophobia and phonophobia. The headache is worse with movements and improve with medications. Ms. Wilson states that her headache followed a recent fall with associated
head trauma 1 week ago. She has tried [id number] NSAIDs with minimal improvement. No reports of change in vision, strength and sensation.
Ms. Serrato is on Aimovig for headache prophylaxis.
She has been receiving ketorolac diazepam and Tylenol with partial relief since her hospitalization.
EKG(09/26/2024) NSR, QTc Int : 467 ms
Labs: ESR 38, CRP�29.5, Mg-1.9, Negative for Influenza A & B,�TSH�8.18, normal free T4.
Brain MRI wo lillian(09/25/2023)-severe white matter leukoaraiosis in both cerebral hemispheres; symmetric very low T2 gradient echo signal in the globus pallidus of the basal ganglia and in the substantia nigra of the midbrain which appears similar to
06/22/2020; moderate diffuse cerebral and cerebellar volume loss.
PMH: pituitary microadenoma, migraine, parkinsonism, HTN, DLP, DM, hypothyroidism, LILLIAN, MDD, h/o Edd's angina
PSH:Left Lumpectomy, cholecystectomy, DESIRE, bilateral Salpingo-oophorectomy
SH: to a female partner, former smoker; retired [employer]; no history of excessive alcohol
FH:mother-stroke in her 70s
All: Butorphanol
ROS: Constitutional: Negative. Negative for chills, fever and unexpected weight change.
HENT: Positive for photophobia, phonophobia
Eyes: Negative. Negative for photophobia, pain and visual disturbance.
Respiratory: Negative for cough, choking and shortness of breath.
Cardiovascular: Negative for chest pain, palpitations and leg swelling.
Gastrointestinal: Negative for abdominal pain and vomiting.
Endocrine: Negative. Negative for cold intolerance.
Genitourinary: Negative for dysuria, flank pain and urgency.
Musculoskeletal: Negative for back pain, gait problem, neck pain and neck stiffness.
Skin: Negative for rash.
Allergic/Immunologic: Negative. Negative for immunocompromised state.
Neurological: Positive for bradykinesia, forgetfulness imbalance, tremor, falls, headache
Psychiatric/Behavioral: Positive insomnia, cognitive symptoms
General: Well developed. In no acute distress.
Cardio: Regular rate and rhythm without murmur. Extremities are without cyanosis or edema.
Neuro:
Mental Status: Somnolent, oriented to person, place, and date. Increased processing time. Impaired attention good fund of knowledge. Follows complex requests across the midline. Comprehension, naming, and repetition intact.
Cranial Nerves: Pupils are equally round and reactive to light. EOMs full. Visual suazo full to confrontation. No ptosis. No nystagmus. V1-V3 intact to light touch and pinprick bilaterally, symmetric. Face symmetric. Normal hearing AU. The
palate elevated well. SCMs and traps 5/5. Tongue midline. No dysarthria.
Motor: Increased motor tone in right greater than left with augmentation.
Reflexes: Negative grasp bilaterally
Coordination: Mild action hand tremor. No dysmetria
Gait: deferred
Assessment and Plan:
I. Status migrainous with superimposed posttraumatic and MOH
II. Cervical DJD
III. Elevated ESR, CRP
IV. Parkinsonism
V. Basal ganglia iron deposition. Differential diagnosis includes neurodegeneration with brain iron accumulation, multiple sclerosis, IPD)
. Encephalopathy(vascular, neurodegenerative, toxic)
-Fall precautions
-Please check SARS 2 COVID antigen
-MRI with lillian to rule out cerebral sinus thrombosis
-Start amitriptyline 25 mg nightly with titration as tolerated and close QTc interval monitoring
-Na Valproate 500 mg every 12 IV as needed
-Dexamethasone 4 mg IV once with close glucose monitoring
-Will follow
I personally reviewed all radiology and labs along with past medical records pertinent to current medical problems. Total time spent in patient care is 40 minutes.
Thank you for allowing us to participate in the care of this patient. We will continue to follow. Please do not hesitate to contact us with any questions or concerns.
Objective Data
Vital Signs
Temp Pulse Resp BP Pulse Ox
36.4 C 68 18 130/66 95
09/29/24 11:13 09/29/24 11:13 09/29/24 11:13 09/29/24 11:13 09/29/24 11:13
Lab Results
09/29/24 07:40
09/29/24 07:40
Sodium 141 mmol/L (135-145) 09/29/24 07:40
Potassium 4.2 mmol/L (3.5-5.1) 09/29/24 07:40
BUN 28 mg/dl (7-17) H 09/29/24 07:40
Glucose 123 mg/dl (70-99) H 09/29/24 07:40
Calcium 8.8 mg/dl (8.4-10.2) 09/29/24 07:40
Vitamin B12 678 pg/ml (239-931) 09/27/24 06:27
Patient Allergies
adhesive tape Allergy (Verified 09/26/24 17:08)
Rash/BLISTERS
butorphanol Allergy (Verified 09/26/24 17:08)
HALLUCINATIONS
[2024-09-29] MEDS: DECADRON 4 MG IV (13:19)
[2024-09-29] MEDS: DEPACON 55 MG IV (13:44)
--- NOTE | 2024-09-29 14:01 | PTCARENOTE ---
Addendum entered by Savita Saini RN 09/29/24 14:15:
Compazine 10 mg IV given as per order and patient given ice pack for head. Awaiting MRI.
Original Note:
Patient with complaints of severe 'all over' headache. Given decadron IV. MRI screening questions completed. Awaiting MRI head. made aware and requested nausea medication.
[2024-09-29] MEDS: ZOFRAN 4 MG IV ×2 (14:27→21:46)
[2024-09-29 15:51] LABS: Lyme Antibody Screen, EIA Negative (Negative)
[2024-09-29 19:07] VITALS: BP 119/54
[2024-09-29 20:34] LABS: Ceruloplasmin 32 mg/dL (16-45); Transferrin 266 mg/dL (200-360)
[2024-09-29] MEDS: CELEXA 40 MG PO (21:49)
[2024-09-29] MEDS: LIPITOR 40 MG PO (21:50)
[2024-09-29] MEDS: ELAVIL 25 MG PO (21:50)
[2024-09-29 23:08] VITALS: BP 122/55
[2024-09-30] VITALS (8 sets, daily range): BP systolic 95–139; BP diastolic 56–79; PULSE 78–86
[2024-09-30] MEDS: DEPACON 55 MG IV ×2 (02:06→12:15)
[2024-09-30] MEDS: SYNTHROID 50 MCG PO (05:31)
[2024-09-30 08:10] LABS: % Basophils 0.1 % (0-2); % Immature Granulocytes 0.7 % (0-0.5); % Monocytes 2.6 % (1.7-9.3); % Neutrophils 89.6 % (42.2-75.2); Absolute Immature Granulocytes 0.1 10^3/uL (0-0.05); Absolute Monocytes 0.4 10^3/uL (0.1-0.6); Absolute Neutrophils 12.1 10^3/uL (1.4-6.5); Hematocrit 35.9 % (37.0-47.0); Hemoglobin 11.9 g/dL (12.0-16.0); Mean Corp Hgb Conc. 33.1 g/dL (33.0-37.0); Mean Corpuscular Hgb 32.2 pg (27.0-31.0); Mean Platelet Volume 10.5 fL (7.4-10.4); Nucleated Red Blood Cells % 0 %; Platelet Count 302 10^3/uL (130-400); White Blood Cell Count 13.5 10^3/uL (4.8-10.8)
[2024-09-30 08:31] LABS: ALT (SGPT) < 10 U/L (0-35); AST (SGOT) 25 U/L (14-36); Alkaline Phosphatase 75 U/L (38-126); Blood Urea Nitrogen 29 mg/dl (7-17); Calcium 8.8 mg/dl (8.4-10.2); Carbon Dioxide 25 mmol/L (22-30); Chloride 100 mmol/L (98-107); Estimated Creatinine Clearance 62 ml/min; Glucose 125 mg/dl (70-99); Potassium 4.5 mmol/L (3.5-5.1); Sodium 139 mmol/L (135-145); Total Bilirubin 0.7 mg/dl (0.2-1.3); Total Protein 6.4 g/dl (6.3-8.2); eGFR > 60.00
[2024-09-30] MEDS: ORETIC 25 MG PO (09:03)
[2024-09-30] MEDS: PROTONIX 40 MG PO (09:03)
[2024-09-30] MEDS: THERAGRAN 1 TABLET PO (09:03)
[2024-09-30] MEDS: WELLBUTRIN XL (24 hour extended release) 450 MG PO (09:03)
[2024-09-30] MEDS: SINEMET 25-100 1 TABLET PO ×5 (09:03→21:29)
[2024-09-30] MEDS: TORADOL 15 MG IV (09:06)
[2024-09-30] MEDS: ZOFRAN 4 MG IV (09:07)
--- NOTE | 2024-09-30 09:12 | W.PN.HOSP.TC ---
Today's Communication/Plan
-
see bold
Assessment / Plan
Assessment / Plan
#Acute dizziness, headache concern Parkinson's related versus vestibular neuritis vs bbpv
-Appreciate neurology input, brain MRI negative for acute pathology, MRV negative for cerebral venous thrombosis
-09/29 Started on amitriptyline 25 mg nightly, Depakote 500 mg every 12 hours, meclizine as needed, discontinued Valium
-Obtain records from patient's neurologist, ESR 38 (normal for age) CRP elevated at 29.5
#Encephalopathy
Patient demonstrates impaired attention, recall, fluency, reasoning and judgement, scoring below average on long form BCAT 25/50
PT/OT rec SNF at this time with eventual outpatient OT for cognitive and visual perceptual retraining prior to return to driving, IADL
No driving
# Intermittent leukocytosis unclear etiology likely reactive low concern for any infectious etiology
Patient afebrile, normotensive no clinical source
-WBC 13.5 -normalized now
-urinalysis neg
-Afeb; monitor off antibiotics
#Parkinson's disease with chronic falls and shuffling gait
#Frequent falls�uses cane
-Dx 1 year ago per patient
-Follows with neurology Dr. Herman
-Continue Sinemet
#Hx of migraines
-Patient reports migraines have been gone since taking Aimovig injection monthly
-#GERD
-continue omeprazole 20 mg daily
#Diabetes Mellitus, Type II-diet controlled
Accu-Cheks with SSI
#Essential Hypertension
-Continue HCTZ 25 mg daily
#Hyperlipidemia
-Atorvastatin 40 mg at bedtime
#Hypothyroidism
-Continue levothyroxine 50 mcg p.o. daily
#Depression
-Continue Celexa 40 mg at bedtime, Wellbutrin 450 mg daily
#Hx Breast CA s/p Left Lumpectomy
DVT prophylaxis�subcu Lovenox
DNR per patient
Total time spent to see the patient on the floor, examine the patient, review data and lab results, discuss treatment plan with patient, nursing staff around 44 minutes.
Physical Exam
General: No acute distress
HEENT: Normocephalic, Atraumatic, EOMI, MMM
Respiratory: Clear to Auscultation bilaterally
Cardiac: Normal S1/S2, Regular Rate and Rhythm
GI: Soft, Nontender, Nondistended, Normal Bowel Sounds
Extremities: No Clubbing, Cyanosis, or Edema
Neuro: Nonfocal/Grossly Intact
Psych: Calm, Cooperative
Derm: No Visible lesions
Anticipated Discharge: 24 - 48 hours
Subjective/Interval History
-
Date of Service: September 30, 2024
Continues to feel dizzy with a headache. She is also nauseous. No fever.
Objective Data
-
Labs:
Laboratory Results
09/30/24
06:32
WBC 13.5 H
Hgb 11.9 L
Hct 35.9 L
Plt Count 302
Sodium 139
Potassium 4.5
Chloride 100
Carbon Dioxide 25
BUN 29 H
Creatinine 0.9
Glucose 125 H
Calcium 8.8
Total Bilirubin 0.7
AST 25
ALT < 10
Alkaline Phosphatase 75
Vital Signs:
Vital Signs
Temp Pulse Resp BP Pulse Ox
98.1 F 86 18 139/79 97
09/30/24 08:32 09/30/24 08:32 09/30/24 08:32 09/30/24 08:32 09/30/24 08:32
I&O
09/29/24 09/30/24 10/01/24
06:59 06:59 06:59
Intake Total 660 / 660 580 / 580
Balance 660 / 660 580 / 580
--- NOTE | 2024-09-30 10:50 | W.PN.NEURO.1 ---
Today's Communication / Plan
-
.
Subjective/Objective
Subjective Data
Date of Service: September 30, 2024
Neurology follow-up note.
Ms. Woodard continues to have 6 out of 10 holocephalic headache. She admits to taking up to 6 tablets of Motrin along with Tylenol for headache management over the last several months.No change in vision.
MRV showed no evidence of cerebral venous thrombosis. Ms. Wilson tolerates amitriptyline well.
Brain MRI wo lillian(09/25/2023)-severe white matter leukoaraiosis in both cerebral hemispheres; symmetric very low T2 gradient echo signal in the globus pallidus of the basal ganglia and in the substantia nigra of the midbrain which appears similar to
06/22/2020; moderate diffuse cerebral and cerebellar volume loss.
PMH: pituitary microadenoma, migraine, parkinsonism, HTN, DLP, DM, hypothyroidism, LILLIAN, MDD, h/o Edd's angina
PSH:Left Lumpectomy, cholecystectomy, DESIRE, bilateral Salpingo-oophorectomy
SH: to a female partner, former smoker; retired [employer]; no history of excessive alcohol
FH:mother-stroke in her 70s
All: Butorphanol
ROS: Constitutional: Negative. Negative for chills, fever and unexpected weight change.
HENT: Positive for photophobia, phonophobia
Eyes: Negative. Negative for photophobia, pain and visual disturbance.
Respiratory: Negative for cough, choking and shortness of breath.
Cardiovascular: Negative for chest pain, palpitations and leg swelling.
Gastrointestinal: Negative for abdominal pain and vomiting.
Endocrine: Negative. Negative for cold intolerance.
Genitourinary: Negative for dysuria, flank pain and urgency.
Musculoskeletal: No temporal tenderness
Skin: Negative for rash.
Allergic/Immunologic: Negative. Negative for immunocompromised state.
Neurological: Positive for bradykinesia, forgetfulness imbalance, tremor, falls, headache
Psychiatric/Behavioral: Positive insomnia, cognitive symptoms
General: Well developed. In no acute distress.
Cardio: Regular rate and rhythm without murmur. Extremities are without cyanosis or edema.
Neuro:
Mental Status: Awake, oriented to person, place, year, months. Date and date were incorrect. Increased processing time. Unable to do serial sevens. Follows simple requests consistently.
Cranial Nerves: Pupils are equally round and reactive to light. EOMs full. Visual suazo full to confrontation. No ptosis. No nystagmus. V1-V3 intact to light touch and pinprick bilaterally, symmetric. Face symmetric. Normal hearing AU. The
palate elevated well. SCMs and traps 5/5. Tongue midline. No dysarthria.
Motor: Increased motor tone in right greater than left with augmentation.
Reflexes: Negative grasp bilaterally
Coordination: Mild action hand tremor. No dysmetria. Edentulous oral dyskinesias
Gait: deferred
Assessment and Plan:
I. Status migrainous with superimposed posttraumatic and MOH
II. Cervical DJD
III. Elevated ESR, CRP
IV. Parkinsonism
V. Basal ganglia iron deposition. Differential diagnosis includes neurodegeneration with brain iron accumulation, multiple sclerosis, IPD)
. Encephalopathy(vascular, neurodegenerative, toxic)
-Fall precautions
-Please check SARS 2 COVID antigen
-MRI with lillian to rule out cerebral sinus thrombosis
-Increase amitriptyline to 50 mg nightly with titration as tolerated and close QTc interval monitoring
-Na Valproate 500 mg every 12 IV as needed
-Rheumatology consult for elevated CRP/ESR
-No driving
-Hold Diazepam, meclizine as needed
-fabric worker consult
-Please obtain medical records from patient's neurologist
-PT
-Will follow
I personally reviewed all radiology and labs along with past medical records pertinent to current medical problems. Total time spent in patient care is 35 minutes.
Thank you for allowing us to participate in the care of this patient. We will continue to follow. Please do not hesitate to contact us with any questions or concerns.
Objective Data
Vital Signs
Temp Pulse Resp BP Pulse Ox
36.7 C 86 18 139/79 97
09/30/24 08:32 09/30/24 08:32 09/30/24 08:32 09/30/24 08:32 09/30/24 08:32
Lab Results
09/30/24 06:32
09/30/24 06:32
Sodium 139 mmol/L (135-145) 09/30/24 06:32
Potassium 4.5 mmol/L (3.5-5.1) 09/30/24 06:32
BUN 29 mg/dl (7-17) H 09/30/24 06:32
Glucose 125 mg/dl (70-99) H 09/30/24 06:32
Calcium 8.8 mg/dl (8.4-10.2) 09/30/24 06:32
Vitamin B12 678 pg/ml (239-931) 09/27/24 06:27
Patient Allergies
adhesive tape Allergy (Verified 09/26/24 17:08)
Rash/BLISTERS
butorphanol Allergy (Verified 09/26/24 17:08)
HALLUCINATIONS
[2024-09-30 12:50] LABS: Copper, Serum 142.1 ug/dL (80.0-155.0)
[2024-09-30] MEDS: ANTIVERT 25 MG PO (15:51)
[2024-09-30] MEDS: TYLENOL 650 MG PO (15:51)
--- NOTE | 2024-09-30 16:17 | PN.CDI ---
CDI
- -
CDI:
Physician Documentation Request
Admit Date: 09/29/24 15:19
Dear Doctor DO,
Please review the following and provide your response in the progress notes.
Clinical Indicators:
Pt admitted with acute dizziness, headache, and Parkinson's disease.
09/29 Neurology: 'Assessment and plan: Encephalopathy(vascular, neurodegenerative, toxic)'
09/30 Progress Note: ' #Encephalopathy-Patient demonstrates impaired attention, recall, fluency, reasoning and judgement, scoring below average on long form BCAT '
Please specify the known or suspected type of the documented encephalopathy.
Metabolic
Septic
Toxic
Due to a specified condition (such as UTI, hyponatremia, CVA etc)
Other
Unable to determine
Use of terms such as suspected, likely, concern for, or probable (associated with a specific diagnosis that is being evaluated, monitored, or treated as if it exists) are acceptable and can be coded in the inpatient setting, when documented at the
time of discharge.
Thank you,
Shonna Toussaint RN, BSN
CDI Specialist
[facility]
Please use your independent medical judgment in providing your response.
[2024-09-30] MEDS: LOVENOX 40 MG SC (17:08)
[2024-09-30] MEDS: LIPITOR 40 MG PO (21:29)
[2024-09-30] MEDS: ELAVIL 25 MG PO (21:29)
[2024-09-30] MEDS: CELEXA 40 MG PO (21:30)
[2024-10-01] MEDS: DEPACON 55 MG IV ×2 (01:12→12:05)
[2024-10-01 03:29] VITALS: BP 145/76; BP 149/75; BP 157/79; PULSE 76; PULSE 80; PULSE 83
[2024-10-01 07:35] VITALS: BP 124/67; BP 125/56; BP 133/71; PULSE 74; PULSE 84; PULSE 85
--- NOTE | 2024-10-01 09:22 | W.PN.HOSP.TC ---
Today's Communication/Plan
-
see bold
Assessment / Plan
Assessment / Plan
#Acute dizziness, headache concern Parkinson's related versus vestibular neuritis vs bbpv
-Appreciate neurology input, brain MRI negative for acute pathology, MRV negative for cerebral venous thrombosis
-09/29 Started on amitriptyline 25 mg nightly, Depakote 500 mg every 12 hours, meclizine as needed, discontinued Valium
-Obtain records from patient's neurologist, ESR 38 (normal for age) CRP elevated at 29.5
# Acute on chronic encephalopathy, multifactorial from vascular, neurodegenerative and toxic etiologies)
Patient demonstrates impaired attention, recall, fluency, reasoning and judgement, scoring below average on long form BCAT 25/50
PT/OT rec SNF at this time with eventual outpatient OT for cognitive and visual perceptual retraining prior to return to driving, IADL
No driving, patient and have been informed
# Intermittent leukocytosis unclear etiology likely reactive low concern for any infectious etiology
Patient afebrile, normotensive no clinical source
-WBC 13.5 -normalized now
-urinalysis neg
-Afeb; monitor off antibiotics
#Parkinson's disease with chronic falls and shuffling gait
#Frequent falls�uses cane
-Dx 1 year ago per patient
-Follows with neurology Dr. Herman
-Continue Sinemet
#Hx of migraines
-Patient reports migraines have been gone since taking Aimovig injection monthly
-#GERD
-continue omeprazole 20 mg daily
#Diabetes Mellitus, Type II-diet controlled
Accu-Cheks with SSI
#Essential Hypertension
-Continue HCTZ 25 mg daily
#Hyperlipidemia
-Atorvastatin 40 mg at bedtime
#Hypothyroidism
-Continue levothyroxine 50 mcg p.o. daily
#Depression
-Continue Celexa 40 mg at bedtime, Wellbutrin 450 mg daily
#Hx Breast CA s/p Left Lumpectomy
DVT prophylaxis�subcu Lovenox
DNR per patient
Updated on phone 10/01
Total time spent to see the patient on the floor, examine the patient, review data and lab results, discuss treatment plan with patient, nursing staff around 51 minutes.
Physical Exam
General: No acute distress
HEENT: Normocephalic, Atraumatic, EOMI, MMM
Respiratory: Clear to Auscultation bilaterally
Cardiac: Normal S1/S2, Regular Rate and Rhythm
GI: Soft, Nontender, Nondistended, Normal Bowel Sounds
Extremities: No Clubbing, Cyanosis, or Edema
Neuro: Cognitive impairment noted
Psych: Calm, Cooperative
Derm: No Visible lesions
Anticipated Discharge: 24 - 48 hours
Subjective/Interval History
-
Date of Service: October 01, 2024
Patient reports her headache is 4 out of 10 in intensity, she continues to feel dizzy after taking her meclizine. No fever.
Objective Data
-
Vital Signs:
Vital Signs
Temp Pulse Resp BP Pulse Ox
97.6 F 75 19 122/56 97
10/01/24 03:29 09/30/24 23:11 10/01/24 03:29 09/30/24 23:11 10/01/24 03:29
I&O
09/30/24 10/01/24 10/02/24
06:59 06:59 06:59
Intake Total 580 / 580 775 / 775
Balance 580 / 580 775 / 775
[2024-10-01] MEDS: SINEMET 25-100 1 TABLET PO ×5 (09:36→21:56)
[2024-10-01] MEDS: THERAGRAN 1 TABLET PO (09:37)
[2024-10-01] MEDS: SYNTHROID 50 MCG PO (09:37)
[2024-10-01] MEDS: ORETIC 25 MG PO (09:37)
[2024-10-01] MEDS: PROTONIX 40 MG PO (09:37)
[2024-10-01] MEDS: ANTIVERT 25 MG PO (09:41)
[2024-10-01] MEDS: TYLENOL 650 MG PO ×2 (09:41→17:48)
[2024-10-01] MEDS: WELLBUTRIN XL (24 hour extended release) 450 MG PO (09:41)
[2024-10-01 11:23] VITALS: BP 129/60
--- NOTE | 2024-10-01 13:30 | CM ---
CM Late note from 09/29/2024: CM met with patient to complete IA. Rachel lives with her in a 2SH, 3STE with R HR, 1/2 bath 1st floor, FF to 2nd floor bed/bath. Reports bring independent with ADLs and shares IADLs with .
Plan: CM to follow to coordinate discharge planning needs; anticipate SNF vs. home health pending improvement of dizziness and functional mobility.
[2024-10-01 15:16] VITALS: BP 131/63
--- NOTE | 2024-10-01 17:07 | CM ---
CM notified by that Rachel will need SNF transfer prior to returning home. Concern for pt's who, when speaking with the MD, just kept screaming 'what am I going to do!' over and over again. I contacted pt's who answered the phone
screaming 'what am I going to do??? repetitively. CM unable to redirect.
Call placed to [facility] and spoke with Savita Norton; recommendation was for mobile Crisis to be contacted which was done - I spoke with Britney who will have mobile crisis go to the home.
CM met with Rachel who was extremely tired, difficult to understand some of her speaking, but per Rachel, she and her work together to get things done, however per Rachel, she does the driving, food shopping, laundry, and makes
breakfast for both of them. Her sister is incontinent, needs assistance for showering, and to get to the bathroom which is on the second floor, the sister crawls up the steps to a walker on the second leve.
Plan: Mobile Crisis to do a home visit per Britney. [facility] will be contacted again in AM to complete a report of need, as Rachel's does not appear to be able to manage basic needs without her .
Cm will continue to follow.
[2024-10-01] MEDS: LOVENOX 40 MG SC (17:51)
[2024-10-01] MEDS: ELAVIL 25 MG PO (21:56)
[2024-10-01] MEDS: CELEXA 40 MG PO (21:56)
[2024-10-01] MEDS: LIPITOR 40 MG PO (21:56)
[2024-10-01 23:50] VITALS: BP 115/46; BP 118/55; BP 120/57; PULSE 76; PULSE 78; PULSE 82
[2024-10-02] MEDS: DEPACON 55 MG IV ×2 (01:04→14:43)
[2024-10-02] MEDS: SYNTHROID 50 MCG PO (05:36)
[2024-10-02] MEDS: WELLBUTRIN XL (24 hour extended release) 450 MG PO (08:20)
[2024-10-02] MEDS: SINEMET 25-100 1 TABLET PO ×5 (08:20→21:39)
[2024-10-02] MEDS: THERAGRAN 1 TABLET PO (08:21)
[2024-10-02] MEDS: ORETIC 25 MG PO (08:21)
[2024-10-02] MEDS: PROTONIX 40 MG PO (08:21)
[2024-10-02] MEDS: TYLENOL 650 MG PO (08:26)
--- NOTE | 2024-10-02 08:38 | W.PN.HOSP.TC ---
Today's Communication/Plan
-
see bold
Assessment / Plan
Assessment / Plan
#Acute dizziness, headache concern Parkinson's related versus vestibular neuritis vs bbpv
-Appreciate neurology input, brain MRI negative for acute pathology, MRV negative for cerebral venous thrombosis
-09/29 Started on amitriptyline 25 mg nightly, Depakote 500 mg every 12 hours, meclizine as needed, discontinued Valium
-Obtain records from patient's neurologist, ESR 38 (normal for age) CRP elevated at 29.5
# Acute on chronic encephalopathy, multifactorial from vascular, neurodegenerative and toxic etiologies)
Patient demonstrates impaired attention, recall, fluency, reasoning and judgement, scoring below average on long form BCAT /
PT/OT rec SNF at this time with eventual outpatient OT for cognitive and visual perceptual retraining prior to return to driving, IADL
No driving, patient and have been informed
is dependent on patient for care, crisis visited 's home 10/01
Case management setting patient up for rehab
# Intermittent leukocytosis unclear etiology likely reactive low concern for any infectious etiology
Patient afebrile, normotensive no clinical source
-WBC 13.5 -normalized now
-urinalysis neg
-Afeb; monitor off antibiotics
#Parkinson's disease with chronic falls and shuffling gait
#Frequent falls�uses cane
-Dx 1 year ago per patient
-Follows with neurology Dr. Herman
-Continue Sinemet
#Hx of migraines
-Patient reports migraines have been gone since taking Aimovig injection monthly
-#GERD
-continue omeprazole 20 mg daily
#Diabetes Mellitus, Type II-diet controlled
Accu-Cheks with SSI
#Essential Hypertension
-Continue HCTZ 25 mg daily
#Hyperlipidemia
-Atorvastatin 40 mg at bedtime
#Hypothyroidism
-Continue levothyroxine 50 mcg p.o. daily
#Depression
-Continue Celexa 40 mg at bedtime, Wellbutrin 450 mg daily
#Hx Breast CA s/p Left Lumpectomy
DVT prophylaxis�subcu Lovenox
DNR per patient
Updated on phone 10/01
Total time spent to see the patient on the floor, examine the patient, review data and lab results, discuss treatment plan with patient, nursing staff around 41 minutes.
Physical Exam
General: No acute distress
HEENT: Normocephalic, Atraumatic, EOMI, MMM
Respiratory: Clear to Auscultation bilaterally
Cardiac: Normal S1/S2, Regular Rate and Rhythm
GI: Soft, Nontender, Nondistended, Normal Bowel Sounds
Extremities: No Clubbing, Cyanosis, or Edema
Neuro: Cognitive impairment noted
Psych: Calm, Cooperative
Derm: No Visible lesions
Anticipated Discharge: Within 24 hours
Subjective/Interval History
-
Date of Service: October 02, 2024
Continues to have a headache and dizziness, slightly improved from yesterday. No fever, no vomiting.
Objective Data
-
Vital Signs:
Vital Signs
Temp Pulse Resp BP Pulse Ox
97.6 F 67 18 157/58 94
10/01/24 23:50 10/02/24 08:21 10/01/24 23:50 10/02/24 08:21 10/01/24 23:50
I&O
10/01/24 10/02/24 10/03/24
06:59 06:59 06:59
Intake Total 775 / 775 770 / 770
Balance 775 / 775 770 / 770
[2024-10-02 08:42] VITALS: BP 149/66
--- NOTE | 2024-10-02 10:40 | CM ---
Addendum entered by Phoebe Sutton 10/02/24 10:45:
CM spoke with Britney at [facility]. She advised that pt's , Vania, was less agitated and anxious at the time of their visit last night. Vania asked that the Trimming Inspector go to their neighbors to let them know that she was at
home alone; per Britney, the neighbors were agreeable to checking in with Vania and helping with groceries as needed.
[facility] referral called by Crisis to [facility] for assessment of in home needs.
Original Note:
CM followed up with [facility] and awaiting return call to review outcome of home visit from last evening.
CM to follow.
[2024-10-02 13:52] VITALS: BP 116/49; BP 131/62; PULSE 72
--- NOTE | 2024-10-02 15:47 | CM ---
Addendum entered by Phoebe Sutton 10/02/24 17:06:
Referrals sent to [facility].
Original Note:
CM met with Rachel to discuss SNF transfer to improve her strength and ability to manage at home and help her which is their routine. Rachel is agreeable to SNF transfer on a short term basis. She prefers to stay in the [facility].
Referrals made in [facility]; CM will follow up for bed availability once reviewed by facilities.
[2024-10-02 15:48] VITALS: BP 132/62; BP 330/64; PULSE 70; PULSE 73
[2024-10-02] MEDS: LOVENOX 40 MG SC (17:54)
[2024-10-02] MEDS: ANTIVERT 25 MG PO (17:58)
[2024-10-02] MEDS: LIPITOR 40 MG PO (21:39)
[2024-10-02] MEDS: CELEXA 40 MG PO (21:39)
[2024-10-02] MEDS: ELAVIL 25 MG PO (21:39)
[2024-10-02 23:00] VITALS: BP 127/56
[2024-10-03] MEDS: DEPACON 55 MG IV ×2 (00:48→15:34)
[2024-10-03] MEDS: SYNTHROID 50 MCG PO (05:14)
[2024-10-03 08:39] VITALS: BP 141/64
--- NOTE | 2024-10-03 09:03 | W.PN.HOSP.TC ---
Today's Communication/Plan
-
possible discharge tomorrow w/ clinical improvement
Assessment / Plan
Assessment / Plan
#Acute dizziness, headache concern Parkinson's related versus vestibular neuritis vs bbpv
-Appreciate neurology input, brain MRI negative for acute pathology, MRV negative for cerebral venous thrombosis
-09/29 Started on amitriptyline 25 mg nightly, Depakote 500 mg every 12 hours, meclizine as needed, discontinued Valium
-Obtain records from patient's neurologist, ESR 38 (normal for age) CRP elevated at 29.5
# Acute on chronic encephalopathy, multifactorial from vascular, neurodegenerative and toxic etiologies)
Patient demonstrates impaired attention, recall, fluency, reasoning and judgement, scoring below average on long form BCAT 25/50
PT/OT rec SNF at this time with eventual outpatient OT for cognitive and visual perceptual retraining prior to return to driving, IADL
No driving, patient and have been informed
is dependent on patient for care, crisis visited 's home 10/01
Case management setting patient up for rehab
#Abdominal pain
#Constipation
Laxatives as tolerated, suppository and possible enema
Check obstruction series
# Intermittent leukocytosis unclear etiology likely reactive low concern for any infectious etiology
Patient afebrile, normotensive no clinical source
-WBC 13.5 -normalized now
-urinalysis neg
-Afeb; monitor off antibiotics
#Parkinson's disease with chronic falls and shuffling gait
#Frequent falls�uses cane
-Dx 1 year ago per patient
-Follows with neurology Dr. Herman
-Continue Sinemet
#Hx of migraines
-Patient reports migraines have been gone since taking Aimovig injection monthly
-#GERD
-continue omeprazole 20 mg daily
#Diabetes Mellitus, Type II-diet controlled
Accu-Cheks with SSI
#Essential Hypertension
-Continue HCTZ 25 mg daily
#Hyperlipidemia
-Atorvastatin 40 mg at bedtime
#Hypothyroidism
-Continue levothyroxine 50 mcg p.o. daily
#Depression
-Continue Celexa 40 mg at bedtime, Wellbutrin 450 mg daily
#Hx Breast CA s/p Left Lumpectomy
DVT prophylaxis�subcu Lovenox
DNR per patient
Updated on phone 10/01
Total time spent to see the patient on the floor, examine the patient, review data and lab results, discuss treatment plan with patient, nursing staff around 51 minutes.
Physical Exam
General: No acute distress
HEENT: Normocephalic, Atraumatic, EOMI, MMM
Respiratory: Clear to Auscultation bilaterally
Cardiac: Normal S1/S2, Regular Rate and Rhythm
GI: Soft, Nontender, Nondistended, Normal Bowel Sounds
Extremities: No Clubbing, Cyanosis, or Edema
Neuro: Cognitive impairment noted
Psych: Calm, Cooperative
Derm: No Visible lesions
Anticipated Discharge: Within 24 hours
Subjective/Interval History
-
Date of Service: October 03, 2024
Patient complains of vomiting, abdominal pain, and constipation. She continues to have a headache, and feels dizzy. No fever.
Objective Data
-
Vital Signs:
Vital Signs
Temp Pulse Resp BP Pulse Ox
98.7 F 69 18 141/64 96
10/03/24 08:39 10/03/24 08:39 10/03/24 08:39 10/03/24 08:39 10/03/24 08:39
I&O
10/02/24 10/03/24 10/04/24
06:59 06:59 06:59
Intake Total 770 / 770 720 / 720
Balance 770 / 770 720 / 720
[2024-10-03] MEDS: WELLBUTRIN XL (24 hour extended release) 450 MG PO (09:22)
[2024-10-03] MEDS: PROTONIX 40 MG PO (09:22)
[2024-10-03] MEDS: SINEMET 25-100 1 TABLET PO ×3 (09:22→17:18)
[2024-10-03] MEDS: ORETIC 25 MG PO (09:23)
[2024-10-03] MEDS: THERAGRAN 1 TABLET PO (09:24)
[2024-10-03] MEDS: ANTIVERT 25 MG PO (11:38)
[2024-10-03] MEDS: MILK OF MAGNESIA 30 ML PO (12:42)
[2024-10-03] MEDS: SENOKOT-S 2 TABLET PO (12:42)
[2024-10-03] MEDS: ZOFRAN 4 MG IV (12:51)
[2024-10-03 13:20] LABS: % Basophils 0.4 % (0-2); % Eosinophils 2.2 % (0-6); % Immature Granulocytes 0.6 % (0-0.5); % Lymphocytes 16.7 % (20.5-51.1); % Monocytes 6.9 % (1.7-9.3); % Neutrophils 73.2 % (42.2-75.2); Absolute Basophils 0.1 10^3/uL (0-0.2); Absolute Eosinophils 0.3 10^3/uL (0-0.7); Absolute Immature Granulocytes 0.1 10^3/uL (0-0.05); Absolute Lymphocytes 2.1 10^3/uL (1.2-3.4); Absolute Monocytes 0.9 10^3/uL (0.1-0.6); Hematocrit 37.7 % (37.0-47.0); Hemoglobin 12.2 g/dL (12.0-16.0); Mean Corp Hgb Conc. 32.4 g/dL (33.0-37.0); Mean Corpuscular Hgb 31.7 pg (27.0-31.0); Mean Corpuscular Volume 97.9 fL (81.0-99.0); Mean Platelet Volume 10.3 fL (7.4-10.4); Nucleated Red Blood Cells % 0 %; Platelet Count 309 10^3/uL (130-400); Red Blood Cell Count 3.85 10^6/uL (4.20-5.40); Red Cell Dist. Width 13.2 % (11.5-14.5); White Blood Cell Count 12.3 10^3/uL (4.8-10.8)
[2024-10-03] MEDS: DULCOLAX 10 MG RECTAL (13:29)
[2024-10-03] MEDS: TORADOL 15 MG IV (13:29)
[2024-10-03 13:36] LABS: ALT (SGPT) < 10 U/L (0-35); AST (SGOT) 22 U/L (14-36); Albumin 4.2 g/dl (3.5-5.0); Alkaline Phosphatase 74 U/L (38-126); Blood Urea Nitrogen 27 mg/dl (7-17); Calcium 9.6 mg/dl (8.4-10.2); Carbon Dioxide 30 mmol/L (22-30); Chloride 97 mmol/L (98-107); Estimated Creatinine Clearance 56 ml/min; Glucose 112 mg/dl (70-99); Potassium 4.4 mmol/L (3.5-5.1); Sodium 137 mmol/L (135-145); Total Bilirubin 0.8 mg/dl (0.2-1.3); Total Protein 6.6 g/dl (6.3-8.2); eGFR 59.49
--- NOTE | 2024-10-03 14:21 | CM ---
Rachel has been accepted for transfer to [facility]. Bed available today, however pt is not medically stable for discharge today. Per Ryann Trent at [facility], bed is available for transfer tomorrow.
will need to coordinate transport to [facility] for tomorrow pending discharge order.
[2024-10-03] MEDS: DILAUDID 0.5 MG IV ×2 (15:35→18:25)
[2024-10-03 15:46] VITALS: BP 122/77
[2024-10-03] MEDS: SINEMET 25-100 PO ×2 (16:00→22:00)
[2024-10-03] MEDS: LOVENOX 40 MG SC (17:18)
[2024-10-03] MEDS: NSS 1000 IV (17:18)
[2024-10-03] MEDS: SENOKOT-S PO (20:00)
[2024-10-03] MEDS: CELEXA PO (22:00)
[2024-10-03] MEDS: LIPITOR PO (22:00)
[2024-10-03] MEDS: ELAVIL PO (22:00)
[2024-10-03 23:32] VITALS: BP 145/80
[2024-10-04] VITALS (65 sets, daily range): BP systolic 69–123; BP diastolic 26–86; BMI 31.5
[2024-10-04] MEDS: DEPACON 55 MG IV ×2 (01:10→12:15)
[2024-10-04] MEDS: NSS 1000 IV ×4 (01:53→17:41)
[2024-10-04 03:56] LABS: Glucose - Point of Care 160 mg/dl (70-99)
[2024-10-04] MEDS: NSS 250 IV (04:40)
[2024-10-04 05:04] LABS: B.E. -8.5 mmol/L; O2 Saturation % 98.8 % (94-98); PCO2 28 mmHg (32-35); PO2 106 mmHg (83-108); pH 7.35 (7.35-7.45)
--- NOTE | 2024-10-04 05:07 | W.PN.UPDATE ---
Update Note
Progress Note Update
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 Patient seen and evaluated, arousable to name, opens eyes for few seconds, noted moaning, unable to follow commands due to drowsiness. . Skin cold clammy, Lungs rales noted, +BS hypoactive, Abdomen
distended, firm, non tender, (Xray abd results noted 10/03), no edema noted, Rectal Temp 101, HR 104 RR, 28, 96% 2l. BP 80's/50's, BS 160. EKG Sinus Tachycardia. Patient had received Dilaudid 0.5mg IV for Abdomen pain at 1825 last evening, and
valproic acid IV per orders
Telemetry
Stat 250CC NSS bolus
IV Acetaminophen
CBC,BMP, lactic acid, Ammonia level, ABG, Chest Xray Stat, UA stat, Blood culture stat
ABG result noted, IV Sodium Bicarb ordered,
Lactic acid 6.2
Chest Xray read with hospitalist, results pending
IV Vancomycin, Zosyn
Covid, Influenza ordered
CT BP Scan abd/pelvis
90/62, HR 105, 28, 96%RA, during NSS infusion
Sepsis likely due to pneumonia, UTI, intestinal infection, Results pending
RAPID Response called
BP 70's/ 40's
1l IV NSS bolus
Levophed drip
Transfer to IMU
[2024-10-04 05:09] LABS: O2 Therapy 2L NC
[2024-10-04 05:10] LABS: HCO3 15.5 mmol/L (21-28)
[2024-10-04 05:13] LABS: Ammonia < 9 umol/L (9-30)
[2024-10-04] MEDS: OFIRMEV 100 IV ×2 (05:22→21:01)
[2024-10-04 05:31] LABS: Hematocrit 49.1 % (37.0-47.0); Hemoglobin 16.2 g/dL (12.0-16.0); Mean Corpuscular Hgb 32.1 pg (27.0-31.0); Mean Corpuscular Volume 97.4 fL (81.0-99.0); Mean Platelet Volume 10.8 fL (7.4-10.4); Platelet Count 349 10^3/uL (130-400); Red Blood Cell Count 5.04 10^6/uL (4.20-5.40); Red Cell Dist. Width 13.2 % (11.5-14.5); White Blood Cell Count 11.3 10^3/uL (4.8-10.8)
[2024-10-04 05:33] LABS: Lactic Acid 6.2 mmol/L (0.7-2.0)
[2024-10-04] MEDS: SODIUM BICARBONATE 50 MEQ IV (05:36)
[2024-10-04 05:50] LABS: Troponin I 0.041 ng/ml
[2024-10-04 05:59] LABS: Urine Albumin Negative (Neg - Trace); Urine Bilirubin Negative (Negative); Urine Character Clear (Clear); Urine Color Yellow; Urine Glucose Negative (Negative); Urine Ketone 1+ (Negative); Urine Leukocyte Negative (Negative); Urine Nitrite Negative (Negative); Urine Occult Blood Negative (Negative); Urine Urobilinogen Negative (Neg - 1+)
--- NOTE | 2024-10-04 06:11 | PTCARENOTE ---
Addendum entered by Ravi Elliott RN 10/04/24 06:19:
INTERNATIONAL MARKETING EXECUTIVE was called to floor to see pt this morning as pt seem increasing lethargic, was placed on 2 litres of oxygen for pulse oxy of 89-92%, BP-97/53,HR-109, Pt was continued on maintainence fluid of NSS at 100ml/hr.Pt was started with 250 bolus, pt had
rectal temp-101.8, stat labs,ABG Send on pt.
Original Note:
Pt aaox2 only,very drowsy since the beginning of the shift, pt received pain meds prior shift.No pain meds or any other meds were given to pt overight as pt was drowsy but arousable. AIR CARGO GROUND OPERATIONS SUPERVISOR was made aware of pt condition & tachycardia hr-102 other
VSS.
[2024-10-04] MEDS: ZOSYN 50 IV ×4 (06:21→23:20)
--- NOTE | 2024-10-04 06:25 | RR ---
A Rapid Response was called on this patient, please see Rapid Response form.
[2024-10-04] MEDS: VANCOCIN 540 MG IV (06:29)
[2024-10-04] MEDS: SYNTHROID PO (06:29)
--- NOTE | 2024-10-04 06:30 | PTCARENOTE ---
Received patient in bed s/p rapid response. Patient transferred to ICU bed without difficulty, patient moaning but able to follow simple commands and state name when asked. SR/ST on monitor, SBP in 70's - IVF bolus infusing and levophed ordered, see
MAR and worklist. New IV placed and IV atbx infusing, rectal probe placed - patient T101.2. Labs drawn and sent. Report given to oncoming RN.
[2024-10-04 06:35] LABS: Hematocrit 44.6 % (37.0-47.0); Hemoglobin 14.4 g/dL (12.0-16.0); Mean Corp Hgb Conc. 32.3 g/dL (33.0-37.0); Mean Corpuscular Hgb 32.5 pg (27.0-31.0); Mean Corpuscular Volume 100.7 fL (81.0-99.0); Mean Platelet Volume 10.9 fL (7.4-10.4); Platelet Count 315 10^3/uL (130-400); Red Blood Cell Count 4.43 10^6/uL (4.20-5.40); Red Cell Dist. Width 13.2 % (11.5-14.5); White Blood Cell Count 13.7 10^3/uL (4.8-10.8)
[2024-10-04] MEDS: LEVOPHED 250 IV ×3 (06:39→21:02)
[2024-10-04 06:41] LABS: COVID-19 Antigen Negative (Negative)
[2024-10-04] MEDS: ORETIC PO (07:30)
[2024-10-04 07:31] LABS: INR 1.25
[2024-10-04] MEDS: DILAUDID 0.5 MG IV ×3 (07:31→21:53)
[2024-10-04] MEDS: SINEMET 25-100 PO ×5 (07:31→19:45)
[2024-10-04] MEDS: WELLBUTRIN XL (24 hour extended release) PO (07:31)
[2024-10-04] MEDS: THERAGRAN PO (07:31)
[2024-10-04] MEDS: PROTONIX PO (07:31)
--- NOTE | 2024-10-04 07:35 | PTCARENOTE ---
All pt belongings bags,single point cane,dentures were transfered to ICU.
--- NOTE | 2024-10-04 07:47 | PTCARENOTE ---
Addendum entered by Magalis Gonzalez RN 10/04/24 08:21:
Dr Whittington updated with critical labs, Levophed, patient assessments. awaiting call from CT to obtain CT abdomen
Original Note:
report received. assessments per work list. patient writhing in bed, yelling out in pain, yelling 'help me over and over'. patient medicated with dilaudid. abdomen distended, firm and tender, absent bowel sounds. no void at this time. labs sent,
fluid bolus completed, levopjhed titration per work list for hypotension. call placed to CT can, message left. tiger text to hospitalist to update. message read
[2024-10-04 07:51] LABS: Lactic Acid 6.4 mmol/L (0.7-2.0)
[2024-10-04] MEDS: SENOKOT-S PO ×2 (07:55→19:42)
[2024-10-04 07:56] LABS: Blood Urea Nitrogen 46 mg/dl (7-17); Calcium 8.1 mg/dl (8.4-10.2); Carbon Dioxide 18 mmol/L (22-30); Chloride 104 mmol/L (98-107); Estimated Creatinine Clearance 31 ml/min; Glucose 159 mg/dl (70-99); Potassium 4.3 mmol/L (3.5-5.1); Sodium 138 mmol/L (135-145); eGFR 29.38
[2024-10-04 08:05] LABS: Troponin I 0.058 ng/ml
--- NOTE | 2024-10-04 08:12 | W.PN.HOSP.TC ---
Today's Communication/Plan
-
see bold
Assessment / Plan
Assessment / Plan
#Septic shock with lactic acidosis
#Probable left lower lobe pneumonia from aspiration
#Fever with leukocytosis
10/04 early AM -patient became hypotensive requiring Levophed, lactic acid elevated
Appreciate logistics/shipper input, continue IV vanc/zosyn, IV fluids, Levophed, wean as tolerated
Follow-up on blood cultures, trend fever and white count
#Abdominal pain
#Constipation
#Colonic distention
10/04 abdomen is tense
Appreciate general surgery input, no surgical issues identified
Appreciate GI input, recommend milk of molasses enema, check C. difficile, norovirus
#Acute kidney injury
Continue IV fluids, pressors
Trend Cr, no nephrotoxic drugs/NSAIDs
#Acute dizziness, headache concern Parkinson's related versus vestibular neuritis vs bbpv
-Appreciate neurology input, brain MRI negative for acute pathology, MRV negative for cerebral venous thrombosis
-09/29 Started on amitriptyline 25 mg nightly, Depakote 500 mg every 12 hours, meclizine as needed, discontinued Valium
-Obtain records from patient's neurologist, ESR 38 (normal for age) CRP elevated at 29.5
# Acute on chronic encephalopathy, multifactorial from vascular, neurodegenerative and toxic etiologies)
Patient demonstrates impaired attention, recall, fluency, reasoning and judgement, scoring below average on long form BCAT 25/50
PT/OT rec SNF at this time with eventual outpatient OT for cognitive and visual perceptual retraining prior to return to driving, IADL
No driving, patient and have been informed
is dependent on patient for care, crisis visited 's home 10/01
Case management setting patient up for rehab
# Intermittent leukocytosis unclear etiology likely reactive low concern for any infectious etiology
Patient afebrile, normotensive no clinical source
-WBC 13.5 -normalized now
-urinalysis neg
-Afeb; monitor off antibiotics
#Parkinson's disease with chronic falls and shuffling gait
#Frequent falls�uses cane
-Dx 1 year ago per patient
-Follows with neurology Dr. Herman
-Continue Sinemet
#Hx of migraines
-Patient reports migraines have been gone since taking Aimovig injection monthly
-#GERD
-continue omeprazole 20 mg daily
#Diabetes Mellitus, Type II-diet controlled
Accu-Cheks with SSI
#Essential Hypertension
-Continue HCTZ 25 mg daily
#Hyperlipidemia
-Atorvastatin 40 mg at bedtime
#Hypothyroidism
-Continue levothyroxine 50 mcg p.o. daily
#Depression
-Continue Celexa 40 mg at bedtime, Wellbutrin 450 mg daily
#Hx Breast CA s/p Left Lumpectomy
DVT prophylaxis�subcu Lovenox
DNR per patient
Updated on phone 10/01
Total time spent to see the patient on the floor, examine the patient, review data and lab results, discuss treatment plan with patient, nursing staff around 53 minutes.
Physical Exam
General: Lethargic, no acute distress
HEENT: Normocephalic, Atraumatic, EOMI, MMM
Respiratory: Clear to Auscultation bilaterally
Cardiac: Normal S1/S2, Regular Rate and Rhythm
GI: Tense abdomen, tender, tympanic to percussion
Extremities: No Clubbing, Cyanosis, or Edema
Neuro: Cognitive impairment noted
Lethargic
Anticipated Discharge: > 48 hours
Subjective/Interval History
-
Date of Service: October 04, 2024
Overnight events noted. Patient became hypotensive, febrile, is now requiring Levophed. Currently on IV antibiotics, continues to be febrile. Lactic acid elevated.
Objective Data
-
Labs:
Laboratory Results
10/04/24 10/04/24 10/04/24
04:39 04:54 06:28
WBC 11.3 H 13.7 H
Hgb 16.2 H D 14.4
Hct 49.1 H 44.6
Plt Count 349 315
PT
INR
APTT
HCO3 15.5 L*
Sodium Cancelled Cancelled
Potassium Cancelled Cancelled
Chloride Cancelled Cancelled
Carbon Dioxide Cancelled Cancelled
BUN Cancelled Cancelled
Creatinine Cancelled Cancelled
Glucose Cancelled Cancelled
Calcium Cancelled Cancelled
10/04/24
07:09
WBC
Hgb
Hct
Plt Count
PT 16.0 H
INR 1.25
APTT 28.0
HCO3
Sodium 138
Potassium 4.3
Chloride 104
Carbon Dioxide 18 L
BUN 46 H
Creatinine 1.8 H
Glucose 159 H
Calcium 8.1 L D
Vital Signs:
Vital Signs
Temp Pulse Resp BP Pulse Ox
101.4 F H 91 32 103/62 96
10/04/24 07:13 10/04/24 07:00 10/04/24 07:00 10/04/24 07:00 10/04/24 07:13
I&O
10/03/24 10/04/24 10/05/24
06:59 06:59 06:59
Intake Total 720 / 720 5 / 1115
Output Total 150 / 150
Balance 720 / 720 -150 / -150 5 / 1115
--- NOTE | 2024-10-04 09:02 | PHA.VAN.IN ---
Assessment
- Assessment
Renal Function: Appears elevated from baseline (BASELINE SCR ~0.8)
Maximum Temperature: 101.8 F
Concomitant Antimicrobials: PIPERACILLIN/TAZOBACTAM
Plan
- Plan
Initial / Loading Dose: VANCO 2000MG X1
Monitoring: RANDOM 10/05 @0600
MRSA Screen: Ordered per protocol
Pharmacokinetics Vancomycin I
- -
Patient Age: 74
Patient Sex: Female
Vancomycin Day #: 1
Indication: PULM
Requesting Provider: SIVAKUMAR SAMUEL
Height / Weight:
Height 5 ft 6 in
Actual Weight 88.6 kg
IBW in k.3
Adjusted BW in k
Pertinent Past Medical History: DM
- Vital Signs / Lab Results
Temp Pulse Resp BP Pulse Ox
101.4 F H 91 32 103/62 96
10/04/24 07:13 10/04/24 07:00 10/04/24 07:00 10/04/24 07:00 10/04/24 07:13
Lab Results - Hematology
10/03/24 10/04/24 10/04/24
13:02 04:39 06:28
WBC 12.3 H 11.3 H 13.7 H
Lab Results - Chemistry
10/03/24 10/04/24 10/04/24
13:02 04:39 06:28
BUN 27 H Cancelled Cancelled
Creatinine 1.0 Cancelled Cancelled
Estimated Creat Clear 56 Cancelled Cancelled
Albumin 4.2
10/04/24
07:09
BUN 46 H
Creatinine 1.8 H
Estimated Creat Clear 31
Albumin
10/04/24 10/04/24
04:39 07:09
Lactic Acid 6.2 H* 6.4 H*
Lab Results - Urine
10/04/24
05:33
Urine Nitrite (Reflex) Negative
Leukocyte Esterase Rfl Negative
Microbiology Results
10/04/24 06:03 Influenza Types A & B (COLLIN) - Final
Nasal Swab Negative for Influenza A & B, NAAT
Negative results must be combined with clinical observations
and patient history.
Nucleic Acid Amplification test (NAAT)performed on the
[employer] platform.
--- NOTE | 2024-10-04 09:27 | CON.INTV ---
Consultation
Consultation Request
Date/Time Consultation Requested: 10/04/2024849
Date/Time Consultation Performed: 10/04/2024 - 919
Requesting Provider: Dr. Whittington
Performing Provider: Dr. Francis
Reason for Consultation: Concern for septic shock/on pressors
Medical History
-
Chief Complaint: Headache + dizziness X 1 week
History of Present Illness:
74-year-old female with a past medical history of Parkinson disease (diagnosed 2022), frequent falls, hypertension, history of migraine headaches, left-sided breast cancer s/p chemo/radiation (2014), history of C. difficile colitis (2000),
depression, hypothyroidism, borderline DM type II and GERD who presents with headache and dizziness for 1 week. She had ongoing dizziness and headaches for the past year and diagnosed with Parkinson's and placed onto Sinemet. She does have
frequent falls due to dizziness. She follows with Dr. Herman from neurology. She was given Toradol initially on admission with improvement and Antivert for dizziness. PT was consulted for vestibular therapy and neurology also consulted. Brain MRI on
09/25/2023 showed severe white matter leukoaraiosis in both cerebral hemispheres and other changes similar to prior imaging from June 2020. 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
She had a recurrent headache and MRV was negative for cerebral dural venous sinus thrombosis. She did have altered mental status with impaired attention, and abnormal reasoning and judgment. She has remained lethargic and drowsy, skin was clammy
on morning of 10/04/2024, and she was hypotensive with BP in the 80s/50s. Labs showed slightly worsening leukocytosis at 13.7, with DEO with creatinine 1.8, metabolic acidosis also with lactic acidosis to 6.4. She was transferred to the ICU for
further care and started on Levophed. Interventional Physiatrist services consulted for additional management/recommendations.
When I saw the patient she was resting in bed, currently on Levophed at 10 with BP 107/64, on 3 L/min saturating 97%, with heart rate 95. Currently on NS at 100 cc/h. She is lethargic and in NAD.
PMHx: Depression, left-sided breast cancer s/p chemo/radiation (2014), history of C. difficile colitis (2000), borderline DM type II, hypothyroidism, GERD, Parkinson's disease (diagnosed 2022 on Sinemet), hypertension, history of migraine headaches
PSHx: Left lumpectomy, right lumpectomy, cholecystectomy, total abdominal hysterectomy with bilateral salpingo-oophorectomy, eye surgery, port removal
Past Medical History
Past Medical History: Other (Above as per HPI)
Past Surgical History: Other (Above as per HPI)
Social History
Tobacco: Former Smoker
Alcohol: None
Drug: None
Family History
Family History: CAD (Father + mother)
Allergies / Home Medications
Allergies
Allergy/AdvReac Type Severity Reaction Status Date / Time
adhesive tape Allergy Rash/BLISTE Verified 09/26/24 17:08
RS
butorphanol Allergy HALLUCINATI Verified 09/26/24 17:08
ONS
Home Medications
�Medication �Instructions �Recorded �Confirmed �Last Taken �Type
atorvastatin 20 mg tablet 40 mg PO HS High cholesterol 09/25/11 09/26/24 12/13/20 21:00 History
bupropion HCl 150 mg 24 hr tablet, 450 mg PO DAILY Mental 01/05/23 09/26/24 Unknown History
extended release (Wellbutrin XL) Health/Anxiety
hydrochlorothiazide 25 mg tablet 25 mg PO DAILY Blood pressure 01/05/23 09/26/24 Unknown History
levothyroxine 50 mcg tablet 50 mcg PO DAILY@0700 Thyroid 01/05/23 09/26/24 Unknown History
omeprazole 20 mg capsule,delayed 20 mg PO DAILY Gastrointestinal 01/06/23 09/26/24 Unknown History
release issue
citalopram 40 mg tablet 40 mg PO HS Mental Health 09/25/23 09/26/24 Unknown History
glucosamine-chondroitin 250 mg-200 1 tab PO DAILY Supplement 09/25/23 09/26/24 Unknown History
mg tablet (Osteo Bi-Flex)
carbidopa 25 mg-levodopa 100 mg 1 tab PO 5/D 09/26/24 09/29/24 Unknown History
tablet
erenumab-aooe 140 mg/mL 140 mg SC QMONTH 09/26/24 09/26/24 Unknown History
subcutaneous auto-injector
(Aimovig Autoinjector)
therapeutic multivitamin 1 tab PO DAILY 09/26/24 09/26/24 Unknown History
Review of Systems
-
Unable to Obtain full review of systems at this time due to: Acuity
Vitals / Labs / Diagnostic Testing
Vital Signs
Temp Pulse Resp BP Pulse Ox
101.4 F H 91 32 103/62 96
10/04/24 07:13 10/04/24 07:00 10/04/24 07:00 10/04/24 07:00 10/04/24 07:13
Lab Data
10/04/24 06:28
10/04/24 07:09
Laboratory Results
10/04/24 10/04/24
04:54 07:09
PT 16.0 H
INR 1.25
APTT 28.0
pH 7.35
pCO2 28 L
pO2 106
HCO3 15.5 L*
O2 Delivery Level 2l nc
Microbiology
10/04/24 06:03 Nasal Swab Influenza Types A & B (COLLIN) - Final
Negative for Influenza A & B, NAAT
Negative results must be combined with clinical observations
and patient history.
Nucleic Acid Amplification test (NAAT)performed on the
[employer] platform.
Diagnostic Testing:
Physical Exam
-
HEENT: Normocephalic and Anicteric
Cardiovascular: S1/S2, Rub (negative) and Peripheral Edema (negative)
Respiratory: Wheeze (negative), Rales (Bibasilar), Rhonchi (negative) and Non-Labored Respirations
GI: Soft, Non Distended, Non Tender and Normal Bowel Sounds
Neurology: Tremors (negative) and Other (Lethargic but easily arousable to voice and tactile stimulation)
Skin: Warm and Dry
General: Respiratory Distress (negative), Comfortable, Fever (negative) and Chills (negative)
Assessment
-
Assessment: 74-year-old female with a past medical history of Parkinson disease (diagnosed 2022), frequent falls, hypertension, history of migraine headaches, left-sided breast cancer s/p chemo/radiation (2014), history of C. difficile colitis
(2000), depression, hypothyroidism, borderline DM type II and GERD who presents with headache and dizziness for 1 week. She had ongoing dizziness and headaches for the past year and diagnosed with Parkinson's and placed onto Sinemet. She does have
frequent falls due to dizziness. She follows with Dr. Herman from neurology. She was given Toradol initially on admission with improvement and Antivert for dizziness. PT was consulted for vestibular therapy and neurology also consulted. Brain MRI on
09/25/2023 showed severe white matter leukoaraiosis in both cerebral hemispheres and other changes similar to prior imaging from June 2020. 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
She had a recurrent headache and MRV was negative for cerebral dural venous sinus thrombosis. She did have altered mental status with impaired attention, and abnormal reasoning and judgment. She has remained lethargic and drowsy, skin was clammy
on morning of 10/04/2024, and she was hypotensive with BP in the 80s/50s. Labs showed slightly worsening leukocytosis at 13.7, with DEO with creatinine 1.8, metabolic acidosis also with lactic acidosis to 6.4. She was transferred to the ICU for
further care and started on Levophed. Interventional Physiatrist services consulted for additional management/recommendations.
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 difficile colitis (2000), borderline DM type II, hypothyroidism, GERD, Parkinson's disease (diagnosed 2022 on Sinemet), hypertension, history of
migraine headaches
Impression:
#Shock with lactic acidosis requiring vasopressors due to LLL pneumonia
#LLL pneumonia likely due to aspiration
#DEO
#Lactic acidosis
#Hypocalcemia
#Leukocytosis
#Metabolic acidosis with increased anion gap due to DEO + lactic acidosis
#Elevated troponin likely demand ischemia with type II MS in the setting of shock state
#Elevated urine ketones likely due to reduced PO intake with starvation
Plan:
- Shock state likely due to left-sided pneumonia; not due to UTI as her urinalysis was negative from 09/27/2024 + 10/04/2024,
- Would check a random cortisol level to evaluate for adrenal insufficiency as a cause for shock (less likely given no hyponatremia)
- Continue with Levophed and wean off as tolerated while keeping MAP >65
- Replete calcium until corrected Ca is normalized
- Blood cultures collected today - follow this up
- Continue with broad-spectrum antibiotics, currently on Zosyn s/p IV vancomycin (given 10/04/2024 - stopped due to negative MRSA swab)
- Of note prior urine culture from 09/25/2023 shows NGTD
- Check sputum culture if patient can produce a decent sample, may need to be suctioned given her altered mental status
- Check Legionella + strep pneumonia urine antigens
- Trend lactate levels until <2mmol/L
- Maintain SpO2 >90-94%
- Given that she is altered, keep HOB >30-45� and maintain aspiration precaution
- Keep NPO until mentation improves
- prn nebulized bronchodilators - not currently bronchospastic
- Trend sCr andn UOP
- UOP is low --> insert kerr for accurate I/O
- Renally dose all meds/Abx
- trend sHCO3 level
- Blood gas this morning shows pH 7.35 with pCO2 28 � no need for bicarb supplementation at this time; continue to monitor
- Replete electrolytes with K>4, Mg>2
- Maintain euglycemia with goal BG 140-180
- Trend H/H and transfuse if needed to keep Hb>7g/dL; keep plt>20k, unless there is concern for bleeding then keep plt>50k
- If she does not wake up to start PO diet by tomorrow then will speak with family as she may need dobhoff to start tube feeds
- DVT ppx: LMWH
Critical care statement: A total of 37 minutes of critical care time was provided for this patient today. This includes management of unstable vital signs, evaluation of the patient at bedside, reviewing the patient's pertinent medical records
including radiographs, microbiology, laboratory evaluations, and discussion with primary team, consultants, pharmacy, nutrition, physical therapy, case management, charge nurse, critical care nursing, and respiratory therapy.
Data:
CXR 10/04/2024: Findings suspicious for left lower lobe pneumonia.
[2024-10-04] MEDS: CALCIUM GLUCONATE 100 IV ×2 (11:30→21:10)
--- NOTE | 2024-10-04 11:34 | CON.GS ---
Addendum entered and electronically signed by Jesse Delgadillo MD 10/04/24 15:18:
Patient seen and examined with surgical MANAGER OF ENTERPRISE in follow-up this afternoon. Agree with documented consultation note.
Patient is currently in the intensive care unit. Unable to obtain history other than reviewing medical records as outlined below due to patient's acute illness.
Worsening abdominal distention and pain prompting surgical consultation and GI evaluation today as well as imaging.
T 100.7, low-grade tachycardia, hypotensive but now on vasopressors
Response to stimulus but does not follow commands or provide history
ABD: Softly distended, tenderness palpation diffusely unable to assess voluntary guarding or rebound.
CT imaging personally reviewed. Fluid-filled loops of small bowel and colon. No free air. No pneumatosis. Stool down in sigmoid colon and rectum. No clear evidence of enteritis or colitis. No site of obstruction. Trace free fluid in the
abdomen but without organizing abscess.
Assessment/plan: 74-year-old female with probable left lower lobe pneumonia and aspiration and resultant shock
CT imaging and abdominal examinations may be due to reactive ileus in setting of acute illness.
Imaging study negative for any clear evidence of immediate bowel compromise or threat such as perforation, inflammatory process, ischemia or obstruction
Continue current supportive care per primary and medical services
Will follow
Original Note:
Consultation
-
Date/Time Consultation Requested: 10/04/24 0846
Requesting Provider: Ray Whittington
Reason for Consultation: ?tense abdomen
Medical History
-
Chief Complaint: moaning
History of Present Illness:
Ms Serrato is a 74 yo female with a h/o parkinson's disease, falls, DM, breast ca with lupectomy, DESIRE, and open cholecystectomy. She was recently admitted for falls as well and discharged to home as SNF was not covered by her insurance, of note she
lives with her and his her spouse's primary caregiver. She presented again later that day with headaches and dizziness. She was initially followed by neurology this admission for work up without acute findings on MRI/MRA. She has been receiving
treatment for migraines with deteriorating mental status noted this admission and SNF being arranged. She has had noted constipation this presentation on laxatives with vomiting yesterday according to her record. An obstruction series done yesterday
without significant abnormalities. Today, a rapid response was called early this morning as she was hypotensive with only responding with moans. She is hypoxic and requiring oxygen and febrile to 101.4. Antibiotics have now been initiated. On exam,
the abdomen is soft but she does have involuntary guarding with light palpation throughout. She winces with discomfort to deep palpation.
Past Medical History
Past Medical History: Cancer (breast tx with lumpectomy), GERD, Hypothyroidism, Psychiatric (depression) and Other (migraines, parkinsons, falls)
Past Surgical History: Cholecystectomy (open), Gynecological (hystrectomy with bilateral salpingo-oophorectomy ) and Other (lumpectomy)
Social History
Tobacco: Former Smoker
Alcohol: None
Personal:
Living: With Family
Family History
Family History: Reviewed & Not Pertinent
Allergies / Home Medications
Allergy/AdvReac Type Severity Reaction Status Date / Time
adhesive tape Allergy Rash/BLISTE Verified 09/26/24 17:08
RS
butorphanol Allergy HALLUCINATI Verified 09/26/24 17:08
ONS
�Medication �Instructions �Recorded �Confirmed �Type
atorvastatin 20 mg tablet 40 mg PO HS High cholesterol 09/25/11 09/26/24 History
bupropion HCl 150 mg 24 hr tablet, 450 mg PO DAILY Mental 01/05/23 09/26/24 History
extended release (Wellbutrin XL) Health/Anxiety
hydrochlorothiazide 25 mg tablet 25 mg PO DAILY Blood pressure 01/05/23 09/26/24 History
levothyroxine 50 mcg tablet 50 mcg PO DAILY@0700 Thyroid 01/05/23 09/26/24 History
omeprazole 20 mg capsule,delayed 20 mg PO DAILY Gastrointestinal 01/06/23 09/26/24 History
release issue
citalopram 40 mg tablet 40 mg PO HS Mental Health 09/25/23 09/26/24 History
glucosamine-chondroitin 250 mg-200 1 tab PO DAILY Supplement 09/25/23 09/26/24 History
mg tablet (Osteo Bi-Flex)
carbidopa 25 mg-levodopa 100 mg 1 tab PO 5/D 09/26/24 09/29/24 History
tablet
erenumab-aooe 140 mg/mL 140 mg SC QMONTH 09/26/24 09/26/24 History
subcutaneous auto-injector
(Aimovig Autoinjector)
therapeutic multivitamin 1 tab PO DAILY 09/26/24 09/26/24 History
Review of Systems
-
Unable to obtain full review of systems at this time due to: Acuity and Patient Non Verbal
History Source: Coordinating Provider and Other (medical record)
A 10 point review of systems was completed, and was negative except as per HPI.
Physical Exam
Vital Signs
Temp Pulse Resp BP Pulse Ox
101.4 F H 96 39 80/60 94
10/04/24 07:13 10/04/24 11:00 10/04/24 11:00 10/04/24 11:00 10/04/24 10:45
10/03/24 10/04/24 10/05/24
06:59 06:59 06:59
Actual Weight 88.6 kg
Body Mass Index (BMI) 31.5
Lab Results
10/04/24 06:28
10/04/24 07:09
WBC 13.7 10^3/uL (4.8-10.8) H 10/04/24 06:28
Hgb 14.4 g/dL (12.0-16.0) 10/04/24 06:28
Hct 44.6 % (37.0-47.0) 10/04/24 06:28
Plt Count 315 10^3/uL (130-400) 10/04/24 06:28
Abs Immat Gran (auto) 0.1 10^3/uL (0-0.05) H 10/03/24 13:02
Neutrophils % 73.2 % (42.2-75.2) 10/03/24 13:02
Physical Exam
General: Fever; Negative Comfortable
HEENT: Normocephalic and Moist Mucous Membranes
Respiratory: Non Labored Respirations
GI: Soft, Tender (winces to palpation R>L) and Other (guarding)
Skin: Warm and Dry
Neuro: Other (keeps eyes closed, moans. Open's eyes to pain); Negative Awake or Oriented
Data Reviewed
-
Radiology: Image Personally Visualized and interpreted, Report Reviewed by me, Discussed with Physician and Discussed with Nurse
CT Scan: Image Personally Visualized and interpreted, Report Reviewed by me, Discussed with Physician and Discussed with Nurse
Labs: Labs Reviewed by me, Discussed with Physician and Discussed with Nurse
Old Records: Reviewed
Assessment / Plan
-
74 yo female who initially presented with headache/dizziness/falls with constipation noted with vomiting yesterday. Obstruction series yesterday with ?dysmotility but no significant abnormalities. CXR suggestive of left sided PNA. Lactic acid is
significantly elevated. ABG with compensated metabolic acidosis. Mild leukocytosis. ABX initiated this morning when rapid response was called. MS acutely changed, opens eyes to name otherwise just moans. Hypotensive with pressors being initiated.
Hypoxia now on O2. New fevers today with tmax of 101.8. ABD with generalized tenderness and involuntary guarding, exam difficult d/t mental state. CT imaging today with stool burden present and possible fecal impaction but no evidence of ischemic
bowel, abscess, or free air. Some possible mild wall thickening of the sigmoid. Low suspicion for stercoral colitis but remains in the differential. GI consulted and evaluated patient just after I saw her and attempting fecal disimpaction at
bedside.
--ABX/sepsis management as per primary team
--Bowel regimen as per GI
--No surgery planned at this time
--- NOTE | 2024-10-04 11:38 | CON.GI ---
Consultation
-
Date/Time Consultation Requested: 10/04/24 8:46am
Date/Time Consultation Performed: 10/04/24 11:39am
Requesting Provider: Mone Whittington
Performing Provider: Kevin Nuñez
Reason for Consultation: abdominal pain/distention
Medical History
Chief Complaint / HPI
Chief Complaint: abdominal pain/distention
History of Present Illness:
Patient is a 74-year-old female who was admitted with dizziness and headache. Neurology was consulted. She also complained of constipation and was ordered laxatives and enemas. Overnight she had a change in mental status and became more lethargic
and drowsy with increased lactate prompting transfer to ICU and ordering of urgent CT without contrast given bump in her creatinine. She is now confused and lethargic in the ICU although recently medicated with pain medications, therefore history
is limited
Past Medical History
Past Medical History: Hypothyroidism, NIDDM and Other (Parkinson's, breast CA s/p chemo/XRT, hx C diff)
Past Surgical History: Cholecystectomy and Gynecological (DESIRE/BSO, L lumpectomy)
Social History
Tobacco: Former Smoker
Alcohol: None
Family History
Family History: Unable to Obtain
Allergies / Home Medications
Allergy/AdvReac Type Severity Reaction Status Date / Time
adhesive tape Allergy Rash/BLISTE Verified 09/26/24 17:08
RS
butorphanol Allergy HALLUCINATI Verified 09/26/24 17:08
ONS
�Medication �Instructions �Recorded
atorvastatin 20 mg tablet 40 mg PO HS High cholesterol 09/25/11
bupropion HCl 150 mg 24 hr tablet, 450 mg PO DAILY Mental 01/05/23
extended release (Wellbutrin XL) Health/Anxiety
hydrochlorothiazide 25 mg tablet 25 mg PO DAILY Blood pressure 01/05/23
levothyroxine 50 mcg tablet 50 mcg PO DAILY@0700 Thyroid 01/05/23
omeprazole 20 mg capsule,delayed 20 mg PO DAILY Gastrointestinal 01/06/23
release issue
citalopram 40 mg tablet 40 mg PO Mental Health 09/25/23
glucosamine-chondroitin 250 mg-200 1 tab PO DAILY Supplement 09/25/23
mg tablet (Osteo Bi-Flex)
carbidopa 25 mg-levodopa 100 mg 1 tab PO 5/D 09/26/24
tablet
erenumab-aooe 140 mg/mL 140 mg SC QMONTH 09/26/24
subcutaneous auto-injector
(Aimovig Autoinjector)
therapeutic multivitamin 1 tab PO DAILY 09/26/24
Review of Systems
-
All other systems: A 12 pt ROS was Negative except as stated above in HPI
Vital Signs
Temp Pulse Resp BP Pulse Ox
101.4 F H 96 39 80/60 94
10/04/24 07:13 10/04/24 11:00 10/04/24 11:00 10/04/24 11:00 10/04/24 10:45
Physical Exam
Exam
General: Other (Lethargic, minimal response to voice)
HEENT: Normocephalic
Respiratory: Non Labored Respirations
GI: Soft, Tender and Distended
Rectal: Brown (no fecal impaction, minimal brown stool)
Neuro: Sedated
Results
WBC 13.7 10^3/uL (4.8-10.8) H 10/04/24 06:28
Hgb 14.4 g/dL (12.0-16.0) 10/04/24 06:28
Hct 44.6 % (37.0-47.0) 10/04/24 06:28
MCV 100.7 fL (81.0-99.0) H 10/04/24 06:28
Plt Count 315 10^3/uL (130-400) 10/04/24 06:28
Absolute Neuts (auto) 9.0 10^3/uL (1.4-6.5) H 10/03/24 13:02
PT 16.0 Sec (11.4-14.6) H 10/04/24 07:09
INR 1.25 10/04/24 07:09
APTT 28.0 Sec (23.4-35.0) 10/04/24 07:09
Sodium 138 mmol/L (135-145) 10/04/24 07:09
Potassium 4.3 mmol/L (3.5-5.1) 10/04/24 07:09
Chloride 104 mmol/L (98-107) 10/04/24 07:09
Carbon Dioxide 18 mmol/L (22-30) L 10/04/24 07:09
BUN 46 mg/dl (7-17) H 10/04/24 07:09
Creatinine 1.8 mg/dL (0.6-1.0) H 10/04/24 07:09
Calcium 8.1 mg/dl (8.4-10.2) L D 10/04/24 07:09
Total Bilirubin 0.8 mg/dl (0.2-1.3) 10/03/24 13:02
AST 22 U/L (14-36) 10/03/24 13:02
ALT < 10 U/L (0-35) 10/03/24 13:02
Alkaline Phosphatase 74 U/L (38-126) 10/03/24 13:02
Diagnostic Image Results:
Prior GI Procedures:
EGD:
Colonoscopy:
Assessment / Plan
-
Summary: 74yo female admitted with h/a and dizziness with hx Parkinson's, Neurology consulted, then had sudden change in MS and became lethargic, drowsy 10/05. Lactate elevated, metabolic acidosis, transfer to ICU. CT noncontrast due to Cr 1.[address] AP w/o contrast 10/04/24:
-Bibasilar atelectasis.
-Peripherally calcified chronic left breast hematoma.
-Trace ascites. No focal collection or abscess. No free air.
-No small bowel dilatation or evidence of small bowel obstruction.
-Mild generalized colonic diverticulosis. No evidence of acute diverticulitis.
-Mild colonic distention, measuring up to 6.7 cm involving the ascending colon. Throughout the colon, there is relatively liquid fecal content with scattered air-fluid levels. More solid mild to moderate content in the sigmoid colon.
-Appendix: Not identified with certainty.
Impression:
Change in MS, lethargy 10/04
Colonic distention R colon, stool in sigmoid colon, no fecal impaction on rectal exam
H/A, dizziness
Parkinson's
Recommendations:
Give milk and molasses enema to mobilize stool in L colon. She has R colon distention and abdomen is distended on exam
Check stool C diff, Norovirus (though no diarrhea is atypical)
Continue supportive care
Consider mesenteric ischemia, but she cannot get CTA or MRA due to Cr unless clinically worsening and more compelling reason to give IV contrast
Will follow
-
-
Thank you for consultation and allowing me to participate in the patient's care. Please call the digital production operator GI physician during the after hours with any questions or concerns.
[2024-10-04] MEDS: NSS 500 IV ×2 (12:07→13:56)
[2024-10-04 12:17] LABS: Lactic Acid 5.4 mmol/L (0.7-2.0)
--- NOTE | 2024-10-04 12:27 | PTCARENOTE ---
Addendum entered by Magalis Gonzalez RN 10/04/24 14:07:
plastic frame inserter at bedside and updated. orders received. additional fluid bolus given, patient incontinent small amount liquid stool/ enema from rectum
Original Note:
taken and retruned from CT scan, midline placed by VAT RN. surgery and GI in, orders received. milk and molasses enema given per orders. no results at this time. reassessed. abdomen remains firm and distended. patient moans with care, but otherwise
lethargic. Levophed titration per work list. plastic frame inserter updated. additional fluid bolus given.
--- NOTE | 2024-10-04 16:25 | PTCARENOTE ---
Addendum entered by Magalis Gonzalez RN 10/04/24 16:44:
Dr Nuñez updated by tiger text with lack of real response from enema. no new orders received
Original Note:
patient yelling and restless, increased nonverbal pain cues. medicated with dilaudid per prn order. marketing services manager updated re:bladder scan. orders received, kerr catheter inserted without issue. 80 ml return very dark mat tea colored urine. small
amount liquid stool. specimen sent. labs sent. results pending. remains on 10mcq Levophed.
[2024-10-04 16:48] LABS: Lactic Acid 5.9 mmol/L (0.7-2.0)
[2024-10-04 17:04] LABS: Troponin I 0.063 ng/ml
[2024-10-04] MEDS: TYLENOL/FEVERALL 650 MG RECTAL (17:10)
[2024-10-04] MEDS: PITRESSIN 100 IV (17:25)
[2024-10-04] MEDS: LOVENOX 40 MG SC (17:25)
--- NOTE | 2024-10-04 17:29 | PTCARENOTE ---
Addendum entered by Magalis Gonzalez RN 10/04/24 17:44:
crackles noted bilateral bases. temp 102 core, tachypneic. oxygen titrated per work list. Rt updated
Original Note:
waiter/waitress room service updated with critical labs, levophed titration. orders received. vasopressin initiated, orders received to repeat lactic and troponin IN AM, febrile. medicated with tylenol suppository
[2024-10-04 17:51] LABS: Blood Urea Nitrogen 53 mg/dl (7-17); Calcium 7.9 mg/dl (8.4-10.2); Carbon Dioxide 18 mmol/L (22-30); Chloride 104 mmol/L (98-107); Estimated Creatinine Clearance 23 ml/min; Glucose 131 mg/dl (70-99); Potassium 5.7 mmol/L (3.5-5.1); Sodium 137 mmol/L (135-145)
[2024-10-04 17:56] LABS: Cortisol, Random > 123.0 ug/dl
--- NOTE | 2024-10-04 18:05 | PTCARENOTE ---
retail marketing specialist notified of BMP results by tiger text. placed on midflow 10 liters
[2024-10-04] MEDS: ELAVIL PO (19:42)
[2024-10-04] MEDS: LIPITOR PO (19:42)
[2024-10-04] MEDS: CELEXA PO (19:42)
--- NOTE | 2024-10-04 20:00 | W.PN.UPDATE ---
Update Note
Progress Note Update
Procedure Note: Arterial Line�
� Left Wrist Arrow 20 (11/18)�
Diagnosis:��Septic shock
IV Line Comments: Uneventful Procedure�
Gordo's test completed pre-procedure: Yes�
A-Line Comments: Sterile technique as per standard protocol, Ultrasound guided insertion�
Functioning A-line in situ: Yes�
A-line Insertion Start Time:��1914
A-line in at:��193
[2024-10-04] MEDS: DEXTROSE 50% SYRINGE 25 GRAMS IV (20:53)
[2024-10-04] MEDS: NOVOLIN R 9 UNITS IV (20:53)
[2024-10-05] VITALS (12 sets, daily range): BP systolic 63–145; BP diastolic 29–103; PULSE 2–106; BMI 34.0
--- NOTE | 2024-10-05 | PTCARENOTE ---
Assumed care of patient at 1900, nursing assessment completed and as documented at this time. Patient lethargic and minimally responsive, withdraws to pain but does not follow commands. ST on monitor rates 100's. Left radial arterial line placed by
DOG SITTER, zeroed and waveform WNL. On 10L MF sats 93-95%. Temperature sensing kerr catheter in place, oliguric, draining mat colored urine. Core temp of 102.0, ice packs applied and cooling blanket ordered and placed. Levophed titrated per order, see
worklist. Vasopressin remains infusing at ordered rate. IVF infusing. R M/L patent and in place, R F/A PIV and R Hand PIV patent in place. Patient unable to take PO medications at this time, see MAR for med administration. Hygiene care provided,
repositioned, care ongoing.
[2024-10-05] MEDS: DEPACON 55 MG IV ×2 (00:53→12:47)
[2024-10-05 00:55] LABS: B.E. -13.5 mmol/L; O2 Saturation % 99.2 % (94-98); PCO2 45 mmHg (32-35); PO2 108 mmHg (83-108)
[2024-10-05 00:58] LABS: O2 Therapy 60%; pH 7.14 (7.35-7.45)
[2024-10-05 00:59] LABS: HCO3 15.3 mmol/L (21-28)
--- NOTE | 2024-10-05 01:00 | PTCARENOTE ---
ABG drawn and resulted, DAY CAMP COUNSELOR made aware. Orders placed for BiPAP and Bicarb bolus and gtt, see MAR. RT placed patient on BiPAP, sats 94-96%. Cooling blanket off at 0100, see worklist. Titrating levophed as per order and vasopressin at ordered rate,
see worklist. Patient remains oliguric. Care ongoing.
[2024-10-05 01:23] LABS: Blood Urea Nitrogen 60 mg/dl (7-17); Calcium 8.3 mg/dl (8.4-10.2); Carbon Dioxide 16 mmol/L (22-30); Chloride 105 mmol/L (98-107); Estimated Creatinine Clearance 21 ml/min; Glucose 174 mg/dl (70-99); Magnesium 3.3 mg/dl (1.6-2.3); Sodium 136 mmol/L (135-145); eGFR 18.06
[2024-10-05] MEDS: SODIUM BICARBONATE 50 MEQ IV (02:07)
[2024-10-05] MEDS: PITRESSIN 100 IV ×3 (02:11→16:36)
[2024-10-05] MEDS: OFIRMEV 100 IV ×2 (02:56→09:35)
[2024-10-05] MEDS: LEVOPHED 250 IV ×2 (03:06→06:30)
[2024-10-05] MEDS: SODIUM BICARBONATE 1150 MEQ IV ×2 (03:25→16:41)
[2024-10-05 03:39] LABS: Hematocrit 46.7 % (37.0-47.0); Hemoglobin 14.4 g/dL (12.0-16.0); Mean Corp Hgb Conc. 30.8 g/dL (33.0-37.0); Mean Corpuscular Hgb 31.2 pg (27.0-31.0); Mean Corpuscular Volume 101.3 fL (81.0-99.0); Mean Platelet Volume 11.2 fL (7.4-10.4); Platelet Count 209 10^3/uL (130-400); Red Blood Cell Count 4.61 10^6/uL (4.20-5.40); Red Cell Dist. Width 13.5 % (11.5-14.5); White Blood Cell Count 9.2 10^3/uL (4.8-10.8)
[2024-10-05 03:59] LABS: Lactic Acid 5.5 mmol/L (0.7-2.0)
[2024-10-05 04:00] LABS: Vancomycin Random 15.4 ug/ml
--- NOTE | 2024-10-05 04:00 | PTCARENOTE ---
Patient remains on BiPAP, easily arouses to tactile stimuli. Titrating levophed per orders, see worklist. Vasopressin remains at ordered rate. ABP zeroed and waveform WNL, maintaining MAP >65. Labs drawn and sent. Remains off cooling blanket, core
temp of 97.7. Patient repositioned, VSS, care ongoing.
[2024-10-05 04:09] LABS: Troponin I 0.067 ng/ml
[2024-10-05] MEDS: SYNTHROID PO (04:26)
[2024-10-05] MEDS: ZOSYN 50 IV ×2 (05:55→11:31)
[2024-10-05] MEDS: NOVOLOG FLEXPEN-MODERATE RESISTANCE 1 UNITS SC (06:11)
[2024-10-05 06:12] LABS: Glucose - Point of Care 184 mg/dl (70-99)
--- NOTE | 2024-10-05 07:52 | W.PN.HOSP.TC ---
Today's Communication/Plan
-
see bold
Assessment / Plan
Assessment / Plan
#Septic shock with lactic acidosis
#Probable left lower lobe pneumonia from aspiration
#Fever with leukocytosis
10/04 early AM -patient became hypotensive requiring Levophed, lactic acid elevated
Appreciate stiff straw hat washer input, patient's prognosis is poor, she continues to deteriorate
10/05 informed patient's that patient is actively dying. She is coming to the hospital to say goodbye
Continue IV zosyn, IV fluids, Levophed, vassopressin. S/p vanc, MRSA PCR neg
Covid/flu/legionella/strep neg, blood cx NTD, trend fever and white count
#Abdominal pain
#Constipation
#Colonic distention
#Probable ischemic bowel
10/04 abdomen is tense
Appreciate general surgery input, no surgical issues identified
Appreciate GI input, s/p milk of molasses enema
#Acute kidney injury
Continue IV fluids, pressors
Trend Cr, no nephrotoxic drugs/NSAIDs
#Acute dizziness, headache concern Parkinson's related versus vestibular neuritis vs bbpv
-Appreciate neurology input, brain MRI negative for acute pathology, MRV negative for cerebral venous thrombosis
-09/29 Started on amitriptyline 25 mg nightly, Depakote 500 mg every 12 hours, meclizine as needed, discontinued Valium
-Obtain records from patient's neurologist, ESR 38 (normal for age) CRP elevated at 29.5
# Acute on chronic encephalopathy, multifactorial from vascular, neurodegenerative and toxic etiologies)
Patient demonstrates impaired attention, recall, fluency, reasoning and judgement, scoring below average on long form BCAT 25/50
PT/OT rec SNF at this time with eventual outpatient OT for cognitive and visual perceptual retraining prior to return to driving, IADL
No driving, patient and have been informed
is dependent on patient for care, crisis visited 's home 10/01
Case management setting patient up for rehab
#Parkinson's disease with chronic falls and shuffling gait
#Frequent falls�uses cane
-Dx 1 year ago per patient
-Follows with neurology Dr. Herman
-Holding po Sinemet
#Hx of migraines
Patient reports migraines have been gone since taking Aimovig injection monthly
-#GERD
-PPI IV
#Diabetes Mellitus, Type II-diet controlled
Accu-Cheks with SSI
#Essential Hypertension
-Hold HCTZ 25 mg daily
#Hyperlipidemia
-Hold Atorvastatin 40 mg at bedtime
#Hypothyroidism
-Hold levothyroxine 50 mcg p.o. daily
#Depression
-Hold Celexa 40 mg at bedtime, Wellbutrin 450 mg daily
#Hx Breast CA s/p Left Lumpectomy
DVT prophylaxis�subcu heparin
DNR per patient
Updated on phone 10/05
Total time spent to see the patient on the floor, examine the patient, review data and lab results, discuss treatment plan with patient, nursing staff around 55 minutes.
Physical Exam
General: Obtunded, cool to the touch, appears acutely ill
HEENT: Normocephalic, Atraumatic, EOMI, MMM
Respiratory: Clear to Auscultation bilaterally
Cardiac: Normal S1/S2, Regular Rate and Rhythm
GI: Tense abdomen, tender, tympanic to percussion
Anticipated Discharge: 24 - 48 hours
Subjective/Interval History
-
Date of Service: October 04, 2024
Patient on BiPAP, obtunded. Fever resolved.
Objective Data
-
Labs:
Laboratory Results
10/04/24 10/04/24 10/04/24
04:39 04:54 06:28
WBC 11.3 H 13.7 H
Hgb 16.2 H D 14.4
Hct 49.1 H 44.6
Plt Count 349 315
PT
INR
APTT
HCO3 15.5 L*
Sodium Cancelled Cancelled
Potassium Cancelled Cancelled
Chloride Cancelled Cancelled
Carbon Dioxide Cancelled Cancelled
BUN Cancelled Cancelled
Creatinine Cancelled Cancelled
Glucose Cancelled Cancelled
Calcium Cancelled Cancelled
10/04/24 10/04/24
07:09 16:00
WBC
Hgb
Hct
Plt Count
PT 16.0 H
INR 1.25
APTT 28.0
HCO3
Sodium 138 Pending
Potassium 4.3 Pending
Chloride 104 Pending
Carbon Dioxide 18 L Pending
BUN 46 H Pending
Creatinine 1.8 H Pending
Glucose 159 H Pending
Calcium 8.1 L D Pending
Vital Signs:
Vital Signs
Temp Pulse Resp BP Pulse Ox
100.7 F H 95 31 102/67 93
10/04/24 11:30 10/04/24 14:00 10/04/24 14:00 10/04/24 14:00 10/04/24 14:00
I&O
10/03/24 10/04/24 10/05/24
06:59 06:59 06:59
Intake Total 720 / 720 3057.5 / 3057.5
Output Total 150 / 150 0 / 0
Balance 720 / 720 -150 / -150 3057.5 / 3057.5
[2024-10-05] MEDS: PROTONIX PO (08:11)
[2024-10-05] MEDS: SINEMET 25-100 PO ×2 (08:11→10:19)
[2024-10-05] MEDS: THERAGRAN PO (08:11)
[2024-10-05] MEDS: SENOKOT-S PO (08:11)
[2024-10-05] MEDS: DILAUDID 0.5 MG IV ×2 (08:12→11:31)
[2024-10-05] MEDS: WELLBUTRIN XL (24 hour extended release) PO (08:12)
--- NOTE | 2024-10-05 08:20 | W.PN.INTV ---
Today's Communication / Plan
Recommendations
Continuous BiPAP
Trend blood gas and serum bicarbonate level
Bicarb drip
Aspiration precautions
Keep NPO
Titrate O2 flow rate to keep as her saturations >90%
Antibiotics
Follow-up cultures
Start Atrovent + Xopenex TID
Unable to give PO meds at this time ---> changed to IV if possible
Goal BG 140�180
If hypercapnia + acidosis worsens despite BiPAP + bicarb gtt then she will continue to be increasingly altered with risk for aspiration + hypoxia, at which point we should transition to comfort care as BiPAP is completely contraindicated in a
comatose patient
Guarded prognosis - goals of care are appropriate; Dr. Whittington will be in contact with the patient's to discuss GOC
Assessment
-
Assessment: 74-year-old female with a past medical history of Parkinson disease (diagnosed 2022), frequent falls, hypertension, history of migraine headaches, left-sided breast cancer s/p chemo/radiation (2014), history of C. difficile colitis
(2000), depression, hypothyroidism, borderline DM type II and GERD who presents with headache and dizziness for 1 week. She had ongoing dizziness and headaches for the past year and diagnosed with Parkinson's and placed onto Sinemet. She does have
frequent falls due to dizziness. She follows with Dr. Herman from neurology. She was given Toradol initially on admission with improvement and Antivert for dizziness. PT was consulted for vestibular therapy and neurology also consulted. Brain MRI on
09/25/2023 showed severe white matter leukoaraiosis in both cerebral hemispheres and other changes similar to prior imaging from June 2020. 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
She had a recurrent headache and MRV was negative for cerebral dural venous sinus thrombosis. She did have altered mental status with impaired attention, and abnormal reasoning and judgment. She has remained lethargic and drowsy, skin was clammy
on morning of 10/04/2024, and she was hypotensive with BP in the 80s/50s. Labs showed slightly worsening leukocytosis at 13.7, with DEO with creatinine 1.8, metabolic acidosis also with lactic acidosis to 6.4. She was transferred to the ICU for
further care and started on Levophed. Tableau Report Developer services consulted for additional management/recommendations.
Chronic conditions SVP OPERATIONS: Depression, left-sided breast cancer s/p chemo/radiation (2014), history of C. difficile colitis (2000), borderline DM type II, hypothyroidism, GERD, Parkinson's disease (diagnosed 2022 on Sinemet), hypertension, history of
migraine headaches
Impression:
#Septic shock with lactic acidosis requiring vasopressors due to LLL pneumonia
#LLL pneumonia likely due to aspiration
#Acute respiratory failure with hypoxia + hypercapnia due to septic shock with pneumonia in the setting of obesity with possible MADHAV/OHS
#DEO
#Lactic acidosis
#Hypocalcemia
#Leukocytosis � now resolved as of 10/05/2024
#Metabolic acidosis with increased anion gap due to DEO + lactic acidosis
#Elevated troponin likely demand ischemia with type II VA in the setting of shock state
#Elevated urine ketones likely due to reduced PO intake with starvation
Plan:
- Shock state likely due to left-sided pneumonia; not due to UTI as her urinalysis was negative from 09/27/2024 + 10/04/2024,
- Random cortisol from 10/04/2024 is >123, hence no indication for adrenal insufficiency as a cause for shock
- Continue with Levophed + vaso and wean off as tolerated while keeping MAP >65
- Replete calcium until corrected Ca is normalized
- Follow up blood cultures collected 10/04/2024
- Continue with broad-spectrum antibiotics, currently on Zosyn s/p IV vancomycin (given 10/04/2024 - stopped due to negative MRSA swab)
- Of note prior urine culture from 09/25/2023 shows NGTD
- Check sputum culture if patient can produce a decent sample, may need to be suctioned given her altered mental status
- Legionella + strep pneumonia urine antigens both negative
- Trend lactate levels until <2mmol/L
- Maintain SpO2 >90-94%
- Given that she is altered and on continuous BiPAP, keep HOB >30-45� and maintain aspiration precaution
- Keep NPO until mentation improves
- Start xopenex and atrovent TID
- prn nebulized bronchodilators - not currently bronchospastic
- Trend sCr andn UOP
- UOP low --> kerr inserted on 10/04/2024 for accurate I/O
- Renally dose all meds/Abx
- trend sHCO3 level
- Blood gas AM of 10/04 showed pH 7.35 with pCO2 28, however her lactate is persisting and now her DEO is worsening with worsening metabolic acidosis and blood gas this morning also shows under compensated respiration with respiratory acidosis -->
continue with BiPAP and bicarb drip; continue to trend BMP as well as blood gas; patient is DNR/DNI. If hypercapnia worsens despite BiPAP then she will continue to be increasingly altered with risk for aspiration + hypoxia, at which point we should
transition to comfort care as BiPAP is completely contraindicated in a comatose patient
- Replete electrolytes with K>4, Mg>2
- Maintain euglycemia with goal BG 140-180
- Trend H/H and transfuse if needed to keep Hb>7g/dL; keep plt>20k, unless there is concern for bleeding then keep plt>50k
- If she does not wake up to start PO diet by tomorrow then will speak with family as she may need dobhoff to start tube feeds
- DVT ppx: HSQ
Critical care statement: A total of 41 minutes of critical care time was provided for this patient today. This includes management of unstable vital signs, evaluation of the patient at bedside, reviewing the patient's pertinent medical records
including radiographs, microbiology, laboratory evaluations, and discussion with primary team, consultants, pharmacy, nutrition, physical therapy, case management, charge nurse, critical care nursing, and respiratory therapy.
Data:
CXR 10/04/2024: Findings suspicious for left lower lobe pneumonia.
CT abdomen/pelvis without contrast 10/04/2024:
Bibasilar atelectasis.
Peripherally calcified chronic left breast hematoma.
No obstructive uropathy.
Trace ascites. No focal collection or abscess. No free air.
No small bowel dilatation or evidence of small bowel obstruction.
Mild generalized colonic diverticulosis. No evidence of acute diverticulitis.
Mild colonic distention, measuring up to 6.7 cm involving the ascending colon. Throughout the colon, there is relatively liquid fecal content with scattered air-fluid levels. More solid mild to moderate content in the sigmoid colon.
Appendix: Not identified with certainty.
Subjective Dataa
Subjective Data
Date of Service:
Date of Service: October 05, 2024
Chief Complaint: Tableau Report Developer Follow Up
Subjective:
Patient seen and evaluated this morning. She is currently on BiPAP given acute hypercapnia seen on blood gas this morning. Currently on 10/5cmH2O with PIP [id number], VTe 400 cc and breathing at 28 breaths/min. BiPAP is bled with 15 L/min O2.
Currently BP 86/48 on Levophed at 14mcg/min and also vasopressin 0.03 units/min. Also on bicarb drip at 80 cc/h. She does awaken to voice and tactile stimulation but then quickly falls back asleep.
Review of Systems
General: Other (Unable to obtain given patient's acute clinical status/AMS)
Objective Data
Data Reviewed
Vital Signs / I&O / Oxygen:
Vital Signs
Temp Pulse Resp BP Pulse Ox
98 F 98 28 98/50 96
10/05/24 08:19 10/05/24 08:19 10/05/24 08:19 10/05/24 08:19 10/05/24 08:27
Intake and Output
10/04/24 10/05/24 10/06/24
06:59 06:59 06:59
Intake Total 5778.5 / 6020.0 824.5 / 824.5
Output Total 150 / 150 225 / 235
Balance -150 / -150 5553.5 / 5785.0 799.5 / 799.5
SaO2 96
Nasal Cannula flow liters per 6
minute
Physical Exam
General: Respiratory Distress (negative), Comfortable, Chills (negative) and Sweats (negative)
HEENT: Normocephalic, Anicteric and Other (BiPAP fullface mask on patient)
Cardiovascular: S1-S2, Rub (negative), Peripheral Edema (negative) and Other (Tachycardic)
Respiratory: Wheeze (negative), Crackles (Bilaterally), Rhonchi (negative), Non-Labored Respirations and Stridor (negative)
GI: Soft, Distended (Abdominal distention), Tender (Grossly tender to palpation) and Normal Bowel Sounds
Neurology: Lethargic (Arousable to voice and tactile stimulation but then quickly falls back asleep)
Skin: Warm, Dry, Cyanosis (negative) and Jaundice (negative)
Labs/Micro/Reports
Lab Data
10/05/24 03:18
10/05/24 00:49
Laboratory Results
10/05/24
00:49
pH 7.14 L*
pCO2 45 H
pO2 108
HCO3 15.3 L*
O2 Delivery Level 60%
Microbiology
10/04/24 15:33 Feces/Stool C. difficile GDH Antigen & Toxins - Final
Negative for toxigenic C.difficile
10/04/24 15:31 Urine Legionella Urinary Antigen - Final
Negative for Legionella pneumophila Serogroup 1 antigen.
A negative result does not rule out the possiblity of
Legionella infection due to other serogroups or species of
Legionella. Clinical correlation is recommended.
10/04/24 15:31 Urine Streptococcus pneumoniae Antigen (M - Final
Negative for Streptococcus pneumoniae antigen.
A negative result does not exclude infection with
Streptococcus pneumoniae. Clinical correlation is
recommended.
10/04/24 04:39 Blood/Venous Blood Culture - Preliminary
No Growth in 24 hours- Final report to follow
10/04/24 11:20 Nose Nasal Screen MRSA (PCR) - Final
MRSA not detected - performed by PCR methodology.
10/04/24 06:03 Nasal Swab Influenza Types A & B (COLLIN) - Final
Negative for Influenza A & B, NAAT
Negative results must be combined with clinical observations
and patient history.
Nucleic Acid Amplification test (NAAT)performed on the
[employer] platform.
--- NOTE | 2024-10-05 09:12 | PTCARENOTE ---
Updated assessment, vital sign trends, input/output trends and ongoing supportive cares. Vasopressors as ordered titration follow up ongoing. Await hospitalist team and extracorporeal circulation specialist team to follow goals and plan of cares. Patient unable to take
po/medications. Patient remains restless, lethargic, moaning and crying mostly. Resistant to cares, oral cares and turns. Presently remains on BiPap 15lpm settings /. Saturation presently 95% abg plan shortly with follow up lab trends. Continue
mobility, turning, and skin care protocols. Await am rounds.
--- NOTE | 2024-10-05 09:57 | PTCARENOTE ---
update hospitalist team, hedis analyst team, surgery at bedsdie follow updates and plan of cares. ABG obtained will update trend. Follow up assessment ongoing. Nursing at bedside.
[2024-10-05 10:01] LABS: B.E. -13.4 mmol/L; O2 Saturation % 99.7 % (94-98); PCO2 35 mmHg (32-35); PO2 159 mmHg (83-108)
[2024-10-05 10:02] LABS: O2 Therapy 60
[2024-10-05 10:03] LABS: HCO3 13.7 mmol/L (21-28)
--- NOTE | 2024-10-05 10:15 | PTCARENOTE ---
GI team at [facility] for am update, follow up cares ongoing. Await update from critical care team to update goals of care.
--- NOTE | 2024-10-05 10:16 | W.PN.GI.CBS2 ---
Today's Communication / Plan
-
Lactate 5.5, bicarb 16, Cr 2.7
On 2 pressors
Possible ischemic bowel. CT was done without contrast due to Cr. CTA/angiogram would be high risk for worsening ARF.
C diff negative
Cont supportive care. Primary team to discuss goals of care with family
Prognosis poor.
Assessment / Plan
-
Summary: 74yo female admitted with h/a and dizziness with hx Parkinson's, Neurology consulted, then had sudden change in MS and became lethargic, drowsy 10/05. Lactate elevated, metabolic acidosis, transfer to ICU. CT noncontrast due to Cr 1.[address] AP w/o contrast 10/04/24:
-Bibasilar atelectasis.
-Peripherally calcified chronic left breast hematoma.
-Trace ascites. No focal collection or abscess. No free air.
-No small bowel dilatation or evidence of small bowel obstruction.
-Mild generalized colonic diverticulosis. No evidence of acute diverticulitis.
-Mild colonic distention, measuring up to 6.7 cm involving the ascending colon. Throughout the colon, there is relatively liquid fecal content with scattered air-fluid levels. More solid mild to moderate content in the sigmoid colon.
-Appendix: Not identified with certainty.
Impression:
Pressor dependent hypotension
Metabolic acidosis
ARF
Change in MS, lethargy 10/04
Colonic distention R colon, stool in sigmoid colon, no fecal impaction on rectal exam. C diff negative
H/A, dizziness
Parkinson's
Subjective
Subjective
Date of Service: October 05, 2024
Minimal response to verbal/physical stimuli. Remains on pressors. No BMs after milk and molasses enemas except small stool passage
Objective
Data Reviewed
Laboratory Data:
Laboratory Results
10/05/24 03:18
10/05/24 00:49
Laboratory Results
PT 16.0 Sec (11.4-14.6) H 10/04/24 07:09
INR 1.25 10/04/24 07:09
APTT 28.0 Sec (23.4-35.0) 10/04/24 07:09
Magnesium 3.3 mg/dl (1.6-2.3) H 10/05/24 00:49
Total Bilirubin 0.8 mg/dl (0.2-1.3) 10/03/24 13:02
AST 22 U/L (14-36) 10/03/24 13:02
ALT < 10 U/L (0-35) 10/03/24 13:02
Alkaline Phosphatase 74 U/L (38-126) 10/03/24 13:02
Vital Signs and I&O:
Vital Signs
Temp Pulse Resp BP Pulse Ox
98 F 100 25 98/50 95
10/05/24 08:19 10/05/24 10:00 10/05/24 10:00 10/05/24 08:19 10/05/24 10:00
I&O
10/04/24 10/05/24 10/06/24
06:59 06:59 06:59
Intake Total 5778.5 / 6020.0 1066.0 / 1066.0
Output Total 150 / 150 225 / 235 30 / 30
Balance -150 / -150 5553.5 / 5785.0 1036.0 / 1036.0
Physical Exam
Physical Exam
GI: Distended, Tender and Tense
[2024-10-05 11:54] LABS: Glucose - Point of Care 127 mg/dl (70-99)
[2024-10-05] MEDS: NOVOLOG FLEXPEN-MODERATE RESISTANCE SC ×2 (12:06→17:12)
[2024-10-05] MEDS: XOPENEX 1.25 MG INHALANT SOLUTION INH (14:10)
[2024-10-05] MEDS: ATROVENT NEBULES 0.5 MG INH (14:10)
[2024-10-05 14:26] LABS: ALT (SGPT) 32 U/L (0-35); AST (SGOT) 193 U/L (14-36); Albumin 2.6 g/dl (3.5-5.0); Alkaline Phosphatase 71 U/L (38-126); Direct Bilirubin 0.9 mg/dl (0.0-0.4); Total Bilirubin 1.3 mg/dl (0.2-1.3); Total Protein 4.9 g/dl (6.3-8.2)
[2024-10-05] MEDS: PROTONIX IV 40 MG IV (14:35)
[2024-10-05] MEDS: OFIRMEV IV (14:36)
--- NOTE | 2024-10-05 15:51 | PTCARENOTE ---
Continue follow up with pharmacy, Vascular access team. Await radiology confirmation for picc. Will update line protocols and follow up drip trends.
[2024-10-05] MEDS: NEO-SYNEPHRINE 1% 260 MG IV (16:35)
[2024-10-05] MEDS: LEVOPHED 258 MG IV (16:35)
--- NOTE | 2024-10-05 17:01 | PTCARENOTE ---
Hospitalist, ER team and spouse at [facility]. Patient now on three pressors. Following plan of cares. Emotional support provided by hospitalist and nursing staff. Critical care team working with drip titration and MAP trends. Supportive cares ongoing.
Staff remains at bedside.
--- NOTE | 2024-10-05 17:18 | PTCARENOTE ---
Hospitalist with decision of loved one are planning transition to comfort measure. Update with drum tender team. Continue bedside critical care nursing. Patient family return to ER with ED staff at this time.
--- NOTE | 2024-10-05 17:27 | W.PN.UPDATE ---
Update Note
Progress Note Update
Met patient's , Elda Wilson, at bedside.
Explained to her that patient is actively dying despite maximal medical intervention.
Patient's agreed to transition the patient to comfort care measures only.
Will stop IV fluids, IV antibiotics, IV pressors.
Will order comfort care measures.
--- NOTE | 2024-10-05 17:37 | W.PN.UPDATE ---
Update Note
Progress Note Update
diagnosis:
Septic shock with lactic acidosis
Probable left lower lobe pneumonia from aspiration
Fever with leukocytosis
Abdominal pain
Constipation
Colonic distention
Probable ischemic bowel
Acute kidney injury
Acute dizziness
Acute on chronic encephalopathy, multifactorial from vascular, neurodegenerative, and toxic etiologies
Parkinson's disease with chronic falls and shuffling gait
History of migraines
Gastroesophageal reflux disease
Diabetes
Essential hypertension
Hyperlipidemia
Depression
History of breast cancer status post left lumpectomy
Consults: Neurology, garment liner, general surgery, GI
Hospital course:
74-year-old female with a past medical history of Parkinson's disease, depression, hyperlipidemia, hypertension, diabetes, migraines, and breast cancer status post left lumpectomy was initially admitted to the hospital for intractable headache and
dizziness. Patient was seen in conjunction with neurology. Brain MRI was negative for acute pathology. Neurology started the patient on amitriptyline and Depakote for her headache and dizziness.
Neurology states that she has acute on chronic encephalopathy, that is multifactorial from vascular, neurodegenerative, and toxic etiologies. She has impaired attention, recall, fluency. She is not safe to drive. Patient is the primary caregiver
for her . Patient does all the driving, cooking, cleaning, laundry, etc. for her .
Patient's hospital course was complicated by constipation and abdominal pain. Obstructions series was negative. She was ordered laxatives, but vomited. The following day, she developed septic shock secondary to aspiration pneumonia. Her abdomen
became distended. She was seen in conjunction with the garment liner, GI, and general surgery. She was treated with IV antibiotics, IV fluids, pressors. GI states that her colon is distended, and she is constipated. General surgery states there
are no surgical issues.
Despite maximal medical intervention, patient continued to deteriorate, requiring 3 pressors. Patient's was informed, and came to see the patient at bedside on 10/05/2024. She agreed to transition the patient to comfort care measures only.
--- NOTE | 2024-10-05 17:58 | PTCARENOTE ---
Plan to transition patient to comfort measures. Update with centralized traffic control operator will update and follow comfort measure cares. Medicated for ALMANZAR and pain prior to deline and drip removal. Nursing remains at bedside. Supportive care ongoing.
[2024-10-05] MEDS: MORPHINE SULFATE 2 MG IV (18:01)
--- NOTE | 2024-10-05 18:33 | W.DCSUMMARY ---
Discharge Summary
Discharge Data
Date of Admission: 09/29/24
Date of Discharge: 10/05/24
-
Pending Results: No
Hospital Course
diagnosis:
Septic shock with lactic acidosis
Probable left lower lobe pneumonia from aspiration
Fever with leukocytosis
Abdominal pain
Constipation
Colonic distention
Probable ischemic bowel
Acute kidney injury
Acute dizziness
Acute on chronic encephalopathy, multifactorial from vascular, neurodegenerative, and toxic etiologies
Parkinson's disease with chronic falls and shuffling gait
History of migraines
Gastroesophageal reflux disease
Diabetes
Essential hypertension
Hyperlipidemia
Depression
History of breast cancer status post left lumpectomy
Consults: Neurology, dinkey motor operator, general surgery, GI
Hospital course:
74-year-old female with a past medical history of Parkinson's disease, depression, hyperlipidemia, hypertension, diabetes, migraines, and breast cancer status post left lumpectomy was initially admitted to the hospital for intractable headache and
dizziness. Patient was seen in conjunction with neurology. Brain MRI was negative for acute pathology. Neurology started the patient on amitriptyline and Depakote for her headache and dizziness.
Neurology states that she has acute on chronic encephalopathy, that is multifactorial from vascular, neurodegenerative, and toxic etiologies. She has impaired attention, recall, fluency. She is not safe to drive. Patient is the primary caregiver
for her . Patient does all the driving, cooking, cleaning, laundry, etc. for her .
Patient's hospital course was complicated by constipation and abdominal pain. Obstructions series was negative. She was ordered laxatives, but vomited. The following day, she developed septic shock secondary to aspiration pneumonia. Her abdomen
became distended. She was seen in conjunction with the dinkey motor operator, GI, and general surgery. She was treated with IV antibiotics, IV fluids, pressors. GI states that her colon is distended, and she is constipated. General surgery states there
are no surgical issues.
Despite maximal medical intervention, patient continued to deteriorate, requiring 3 pressors. Patient's was informed, and came to see the patient at bedside on 10/05/2024. She agreed to transition the patient to comfort care measures only.
Discharge Plan
-
Referrals:
Gurdeep Griffiths MD [Family Provider] -
Prescriptions:
No Action
atorvastatin 20 MG tablet
40 mg PO HS
levothyroxine 50 mcg Tablet
50 mcg PO DAILY@0700
hydrochlorothiazide 25 mg Tablet
25 mg PO DAILY
bupropion HCl [Wellbutrin XL] 150 mg Tablet Extended Release 24 Hr
450 mg PO DAILY
omeprazole 20 MG capsule,delayed release(DR/EC)
20 mg PO DAILY
citalopram 40 mg tablet
40 mg PO HS
glucosamine-chondroitin [Osteo Bi-Flex] 250-200 mg Tablet
1 tab PO DAILY
Theragen Tablet
1 tab PO DAILY
carbidopa-levodopa 25-100 mg Tablet
1 tab PO 5/D
Aimovig Autoinjector 140 mg/mL Auto-Injector
140 mg SC QMONTH
Discharge Date and Time
Print Language: SAMOAN
--- NOTE | 2024-10-05 19:05 | W.PN.DEATH ---
Pronouncement of
-
Called to see patient to pronounce.
No spontaneous heart tones or respirations noted.
Patient not responsive to verbal stimuli.
Patient is pronounced .
Time of : 18:47
Date of : 10/05/24
Cause of : septic shock, pneumonia
Family Notified: Yes (Vania Wilson notified)
--- NOTE | 2024-10-05 21:47 | PTCARENOTE ---
pt at 1847, ICU MACHINE ASSISTANT at bedside to pronounce, rhythm strip placed in chart, pt spouse at bedside, emotional support provided, GOL contacted, post mortem care done and pt transferred to [facility].
== END 2024-10-05 18:47 | disposition expired | DRG 56 ==
LOC: ICU 15:19
PROVIDERS: Clinical Nurse Specialist Family Health; Nurse Practitioner Gerontology; Nurse Practitioner Primary Care; Physician Assistant; Psychiatry & Neurology Neurology; ADMITTING PHYSICIAN Hospitalist; ATTENDING PHYSICIAN Family Medicine; CONSULT PHYSICIAN Internal Medicine Critical Care Medicine; CONSULT PHYSICIAN Specialist; CONSULT PHYSICIAN Surgery; EMERGENCY PHYSICIAN Student in an Organized Health Care Education/Training Program; FAMILY PHYSICIAN Family Medicine
DX: G20.C Parkinsonism, unspecified (principal); A41.9 Sepsis, unspecified organism; G92.8 Other toxic encephalopathy; J69.0 Pneumonitis due to inhalation of food and vomit; R65.21 Severe sepsis with septic shock; E87.20 Acidosis, unspecified; K55.9 Vascular disorder of intestine, unspecified; N17.9 Acute kidney failure, unspecified; K21.9 Gastro-esophageal reflux disease without esophagitis; E11.9 Type 2 diabetes mellitus without complications; I10 Essential (primary) hypertension; E03.9 Hypothyroidism, unspecified; E78.00 Pure hypercholesterolemia, unspecified; F32.9 Major depressive disorder, single episode, unspecified; Z66 Do not resuscitate; E83.51 Hypocalcemia; F41.9 Anxiety disorder, unspecified; K57.30 Diverticulosis of large intestine without perforation or abscess without bleeding; K59.00 Constipation, unspecified; Z87.891 Personal history of nicotine dependence; Z51.5 Encounter for palliative care
CPT/HCPCS: 36600; 70450; 70546; 71045; 74022; 74176; 80048; 80053; 80202; 81003; 82140; 82248; 82390; 82525; 82533; 82607; 82728; 82805; 82962; 83540; 83550; 83605; 83735; 84146; 84466; 84484; 85025; 85027; 85610; 85652; 85730; 86140; 86618; 87040; 87324; 87449; 87502; 87641; 87798; 87811; 87899; 93005; 94640; 94660; 96372; 96374; 97116; 97129; 97162; 97530; 97535; 99285; A9585